=== PATIENT | female | born 1945 | race Caucasian/White ===

== ENCOUNTER → 2017-11-17 11:06 | Outpatient (CLI) | payer MEDICARE, OTHER, SELFPAY ==
[2017-11-17 15:27] LABS: Absolute Lymphocyte Count 2.13 X10^3/ul (0.83-4.51); Absolute Neutrophil Count 4.3 X10^3/uL (2.0-7.7); Basophil# 0.03 X10^3/uL; Basophil% 0.4 % (0-1); Eosinophil# 0.31 X10^3/uL; Eosinophils% 4.3 % (0-5); Hematocrit 41.7 % (37-47); Hemoglobin 13.2 g/dl (12.0-15.0); Lymphocyte # 2.13 X10^3/ul (4.0); Lymphocyte % 29.3 % (19-41); Mean Corp Hgb Conc 31.7 g/gl (32-36); Mean Corpuscular Hgb 31.1 pg (27.0-32.0); Mean Corpuscular Volume 98.1 fL (81-99); Mean Platelet Vol. 9.4 fl (6.2-12.0); Monocyte# 0.51 X10^3/uL; Neutrophil # 4.27 X10^3/uL (2.7-7.7); Neutrophil % 58.9 % (47-70); Platelet Count 265 K/mm3 (150-450); RBC Distribution Width CV 14.3 % (11.6-14.6); RBC Distribution Width SD 50.6 fl (35.1-43.9); Red Blood Count 4.25 M/mm3 (4.2-5.4); White Blood Count 7.3 K/mm3 (4.4-11.0)
[2017-11-17 15:40] LABS: POSITIVE COUNT NO; POSITIVE DIFFERENTIAL NO; POSITIVE MORPHOLOGY NO
[2017-11-17 15:46] LABS: T4 Free Direct 1.07 ng/dL (0.76-1.46); Thyroid Stim Hormone (TSH) 1.95 uIU/mL (0.358-3.74)
== END ==
PROVIDERS: Physician Assistant Medical; Family Provider Family Medicine; PCP Family Medicine; Visit Provider Family Medicine
DX: D64.9 Anemia, unspecified (principal)
CPT/HCPCS: 36415; 84439; 84443; 84480; 85025

== ENCOUNTER → 2017-12-10 12:31 | Outpatient (CLI) | payer MEDICARE, OTHER, SELFPAY ==
--- NOTE | 2017-12-10 12:36 | CDU_ITS ---
Reason For Study: carotid stenosis Rt. Velocities/BP Lt. Velocities/BP Prox CCA 82.7/16.4 cm/sec. Prox CCA 92.6/22.3 cm/sec. Mid CCA 69.2/15.2 cm/sec. Mid CCA 75.0/22.3 cm/sec. Dist CCA 64.5/21.7 cm/sec. Dist CCA 65.7/22.3 cm/sec. Prox ICA 38.7/15.8 cm/sec. Prox ICA 46.3/15.8 cm/sec. Mid ICA 57.5/22.3 cm/sec. Mid ICA 109/39.0 cm/sec. Dist ICA 85.0/25.2 cm/sec. Dist ICA 74.0/24.4 cm/sec. Rt. ICA/CCA = 1.2. Lt. ICA/CCA = 1.5. Prox ECA 61.0/11.7 cm/sec. Prox ECA 67.6/10.5 cm/sec. Rt. Vert. 48.1/15.8 cm/sec. Lt. Vert. 62.5/21.6 cm/sec. Right Extracranial There is intimal thickening but no significant atherosclerotic plaque noted in the right common carotid artery. There is intimal thickening but no significant atherosclerotic plaque noted in the right internal carotid artery. There is intimal thickening but no significant atherosclerotic plaque noted in the right external carotid artery. Antegrade flow is noted in the right vertebral artery. Left Extracranial There is intimal thickening but no significant atherosclerotic plaque noted in the left common carotid artery. There is intimal thickening but no significant atherosclerotic plaque noted in the left internal carotid artery. The left internal carotid artery is very tortuous. There is intimal thickening but no significant atherosclerotic plaque noted in the left external carotid artery. Antegrade flow is noted in the left vertebral artery. Procedure Carotid Duplex 79307. The exam was diagnostic. Exam performed in department. Interpretation Summary No hemodynamically significant plague or stenosis bilateral extracranial internal carotids with <50% stenosis bilaterally. Tortuous left internal carotid Normal flow bilateral external carotids Patent and antegrade vertebrals bilaterally Ordering Physician: Kristin Coker Performed By: Girish Gonzales RVT
== END ==
PROVIDERS: Family Provider Family Medicine; PCP Family Medicine; Visit Provider Family Medicine
DX: I65.23 Occlusion and stenosis of bilateral carotid arteries (principal)
CPT/HCPCS: 93880

== ENCOUNTER → 2017-12-17 10:13 | Outpatient (CLI) | payer MEDICARE, OTHER, SELFPAY ==
--- NOTE | 2017-12-17 10:13 | DT_ITS ---
This patient was seen during an EMR downtime December 14, 2017 - December 21, 2017. This patient may have a combination of paper and electronic documentation or all paper documentation. All documentation is viewable within the e-chart portion of [employer] for each patient visit.
--- NOTE | 2017-12-17 10:14 | BI_ITS ---
MAMMOGRAPHY - BILATERAL SCREENING REASON FOR EXAM: Female, 72 years old. Routine annual screening examination. PERTINENT HISTORY: Non-contributory. TECHNIQUE: Digital bilateral breast lloyd (3D mammographic acquisition) in the CC and MLO projections. 2-D mediolateral oblique (MLO) and craniocaudad (CC) views of both breasts were obtained. CAD: Full Field Digital Mammography with Computer Added Detection was performed. COMPARISON: Comparison is made with prior study dated March 31, 2016 and March 29, 2015. FINDINGS: Breast Composition: There are scattered areas of fibroglandular density. More breast tissue is seen in the upper outer quadrant of the left breast as compared to the right side since prior study. This may be related to hormone replacement therapy. Clinical correlation is recommended. There are no dominant masses or suspicious calcifications. No other significant abnormalities are identified. BI/SCREENING MAMM (CAD), BILAT IMPRESSION: Stable bilateral screening mammogram. Yearly follow-up mammogram recommended. (A) ASSESSMENT CATEGORY: BIRADS Category 2: Benign. A letter regarding these results will be sent to the patient by the facility within 30 days. Approximately 10% of breast cancers are not detected by mammography. A normal mammogram should not delay biopsy of a clinically suspicious abnormality. [id number] Electronically Signed: Ton Tipton MD at 9:04 EDT Tel [phone], Service support ,
== END ==
PROVIDERS: Family Provider Family Medicine; PCP Family Medicine; Visit Provider Family Medicine
DX: Z12.31 Encounter for screening mammogram for malignant neoplasm of breast (principal)
CPT/HCPCS: 77063; 77067

== ENCOUNTER → 2018-05-25 08:19 | Outpatient (CLI) | payer MEDICARE, OTHER, SELFPAY ==
[2018-05-25 09:19] LABS: ALB/GLOB Ratio 0.9 RATIO (0.9-2.4); AST(SGOT) 26 U/L (15-37); Alanine Aminotransfer ALT/SGPT 31 U/L (13-56); Albumin, Serum 3.6 g/dL (3.2-5.0); Alkaline Phosphatase 74 U/L (45-117); Anion Gap 7 (5-15); BUN 17 mg/dL (7-18); BUN/Creat Ratio 19.9 RATIO (10-20); Calcium,Total 8.7 mg/dL (8.5-10.1); Chloride 108 mmol/L (98-107); Cholesterol 216 mg/dL (200); Creatinine, Serum 0.86 mg/dL (0.55-1.02); EST Glomerular Filtration Rate 70 mL/min (>60); Est Glom Filt Rate - Afr Amer 84 mL/min (>60); Glucose 103 mg/dL (74-106); High Density Lipoprotein 76 mg/dL; Potassium 4.2 mmol/L (3.5-5.1); Protein, Total 7.6 g/dL (6.4-8.2); Sodium Level 143 mmol/L (136-145); Triglycerides 217 mg/dL; Very Low Density Lipoprotein 43 mg/dL (5-40)
== END ==
PROVIDERS: Family Provider Family Medicine; PCP Family Medicine; Referring Provider Family Medicine; Visit Provider Family Medicine
DX: E78.5 Hyperlipidemia, unspecified (principal); I10 Essential (primary) hypertension; I65.29 Occlusion and stenosis of unspecified carotid artery
CPT/HCPCS: 36415; 80053; 80061

== ENCOUNTER 2018-08-20 05:55 | Day surgery (SDC) | payer MEDICARE, OTHER, SELFPAY ==
[2018-07-29 11:01] VITALS: BMI 27.9
[2018-08-20] VITALS (12 sets, daily range): BP systolic 90–143; BP diastolic 47–77; PULSE 63–73; RESP 14–18; TEMP 35.9–36.8; O2SAT 92–98; BMI 27.1
--- NOTE | 2018-08-20 07:00 | COLBX_PTH ---
PATIENT: LYLY MURO LOC: EN U#:[id number] AGE/SX: 73/F ROOM: RE08/20/[address]: Dr. Alejandro Salcedo MD : 1945 BED: DIS: 08/20/2018 SPEC #: [id number] RECD: 08/20/18 08:50 STATUS: JOSHUA JOHANNA #: [id number] LUANA: 08/20/18 07:[address]: Alejandro Salcedo DEPT: SURGICAL PATHOLOGY RECD BY: Mahin Chris ENTERED: 08/20/18 12:46 SP TYPE: COLON BX OTHR DR: Dr. Mariana Lugo, DO Tissues: A - SPLENIC FLEXURE B - Sigmoid colon biopsy Procedures: Surgery Specimen Level IV HEADER OPERATION: Colonoscopy - open access (MOD) PRE-OP DIAGNOSIS: Screening TISSUE SUBMITTED: A - Polyp at splenic flexure, B - Distal sigmoid polyp MICROSCOPIC DIAGNOSIS A. Colonic polyp at splenic flexure, biopsy: Fragment of benign colonic mucosa. See comment. B. Distal sigmoid colon polyp, biopsy: Fragment of colonic mucosa with focal hyperplastic change. AM:iglesia 08/23/18 COMMENT A. Neither hyperplastic nor adenomatous changes is seen. Clinical correlation is suggested. MICROSCOPIC DESCRIPTION Slides are reviewed. GROSS DESCRIPTION A - Received in fixative is one container labeled with the patient's name and designated polyp at splenic flexure. The specimen consists of one irregular fragment of light bailey soft tissue that measures 0.5 x 0.3 x 0.1 cm. The specimen is totally submitted in one cassette. B - Received in fixative is one container labeled with the patient's name and designated distal sigmoid polyp. The specimen consists of one irregular fragment of light bailey soft tissue that measures 0.4 x 0.3 x 0.1 cm. The specimen is totally submitted in one cassette. / SJ:iglesia 08/20/18 TC:5 CPT: 29202 x2
--- NOTE | 2018-08-20 07:02 | PCM.HP.STD ---
History of Present Illness Date of Admission: 08/20/18 The patient is a 73 year old F who has a personal history of colon polyps. She had a colonoscopy approximately a year and a half ago.At that point there was some difficulty in completely eradicating the polyps. Fortunately she currently has no symptoms. No bright red blood per rectum or melena. No abdominal pain. She did have atrial fibrillation at that time was on chronic anticoagulation. Currently she has a pacemaker. She otherwise feels well. 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 ~11/28/10) Gen change 11/28/10 Cardiomyopathy (Chronic) PAF (paroxysmal atrial fibrillation) (Chronic) HTN (hypertension) (Chronic) HLD (hyperlipidemia) (Chronic) Overweight (BMI 25.0-29.9) (Chronic) Medical History: Medical History (Last Reviewed 07/29/18 @ 11:20 by Raciel Louie MD) Left bundle branch block (Chronic) I44.7 Cardiomyopathy (Chronic) I42.9 PAF (paroxysmal atrial fibrillation) (Chronic) I48.0 HTN (hypertension) (Chronic) I10 HLD (hyperlipidemia) (Chronic) E78.5 Allergies No Known Allergies Allergy (Verified 08/17/18 14:40) Home Medications: Ambulatory Orders Medication Instructions Recorded Lorazepam [Ativan] 0.5 mg PO DAILY PRN PRN 06/30/13 Sertraline HCl [Zoloft] 25 mg PO QHS 06/30/13 fluticasone 50 mcg/actuation nasal 1 spray INTRANASAL DAILY 07/29/18 spray,suspension Allergy Shot QWEEK 08/17/18 Carvedilol [Coreg (Beta Shantel)] 12.5 mg PO BREAKFAST 08/17/18 Cholecalciferol (Vitamin D3) 5,000 unit PO DAILY 08/17/18 [Vitamin D3] Diltiazem HCl [Cardizem Cd] 120 mg PO QDAY 08/17/18 Ramipril [Altace] 10 mg PO DAILY 08/17/18 Carvedilol [Coreg] 25 mg PO QHS 08/20/18 Surgical History: Surgical History (Last Reviewed 07/29/18 @ 11:20 by Raciel Louie MD) Presence of automatic implantable cardioverter-defibrillator (Chronic) Onset Date: ~11/28/10 Z95.810 Gen change 11/28/10 Hx of cholecystectomy Z90.49 Surgical History: - - Pacemaker/AICD replacement x 3, most recent 04/02/17, cholecystectomy. 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 Review of Systems Constitutional: Denies: Anorexia Cardiovascular: Denies: Chest Pain, Claudication Gastrointestinal: Reports: Diarrhea. Denies: Abdominal Pain Neurological: Denies: Balance problems Endocrine: Denies: Change in Body Habitus VTE Information - Inpt Only VTE Present on Admission: No - Physical Exam General: Alert, Oriented x3, Cooperative, No apparent distress HEENT: Atraumatic Lungs: Clear to auscultation Cardiovascular: Regular rate, Regular Rhythm Abdomen: Bowel Sounds Present, Soft, Non Tender, Non-Distended Psych/Mental Status: Normal Affect Vital Signs Temp Pulse Resp Pulse Ox 97.8 F 73 18 96 08/20/18 06:39 08/20/18 06:39 08/20/18 06:39 08/20/18 06:39 Oxygen Delivery Method Room Air Weight: 168 lb Body Mass Index (BMI) 27.1 Assessment/Plan I plan to proceed with a colonoscopy with possible biopsy or polypectomy as indicated. She has had an opportunity to ask and have questions answered. We will proceed as noted. Alejandro Salcedo M.D., F.A.C.S.
--- NOTE | 2018-08-20 07:33 | OP.ENDO_ITS ---
Patient Name: Tish Robert Procedure Date: 08/20/2018 6:59 AM Date of : 1945 Age: 73 Procedure: Colonoscopy Indications: High risk colon cancer surveillance: Personal history of colonic polyps Providers: Alejandro Salcedo MD Referring MD: Alejandro Salcedo MD Medicines: Midazolam 3.5 mg IV, Meperidine 100 mg IV Patient Profile: Last Colonoscopy: 1 year ago. Complications: No immediate complications. Procedure: Pre-Anesthesia Assessment: - Prior to the procedure, a History and Physical was performed, and patient medications and allergies were reviewed. The patient's tolerance of previous anesthesia was also reviewed. The risks and benefits of the procedure and the sedation options and risks were discussed with the patient. All questions were answered, and informed consent was obtained. Prior Anticoagulants: The patient has taken no previous anticoagulant or antiplatelet agents. ASA Grade Assessment: II - A patient with mild systemic disease. After reviewing the risks and benefits, the patient was deemed in satisfactory condition to undergo the procedure. After I obtained informed consent, the scope was passed under direct vision. Throughout the procedure, the patient's blood pressure, pulse, and oxygen saturations were monitored continuously. The Colonoscope was introduced through the anus and advanced to the cecum, identified by appendiceal orifice and ileocecal valve. The colonoscopy was performed without difficulty. The patient tolerated the procedure well. The quality of the bowel preparation was good. The ileocecal valve and the appendiceal orifice were photographed. Moderate Sedation: Moderate (conscious) sedation was personally administered by the endoscopist. The following parameters were monitored: oxygen saturation, heart rate, blood pressure, and response to care. Total physician intraservice time was 15 minutes. Scope In: 7:09:11 AM Scope Withdrawal Time 0 hours 10 minutes 47 seconds Scope Out: 7:26:50 AM Total Procedure Duration Time 0 hours 17 minutes 39 seconds Findings: The digital rectal exam findings include non-thrombosed external hemorrhoids, non-thrombosed internal hemorrhoids and internal hemorrhoids that prolapse with straining, but require manual replacement into the anal canal (Grade III). A 3 mm polyp was found in the distal sigmoid colon. The polyp was sessile. The polyp was removed with a cold biopsy forceps. Resection and retrieval were complete. A 4 mm polyp was found in the splenic flexure. The polyp was sessile. The polyp was removed with a cold biopsy forceps. Resection and retrieval were complete. Multiple diverticula were found in the sigmoid colon and descending colon. Impression: - Non-thrombosed external hemorrhoids, non-thrombosed internal hemorrhoids and internal hemorrhoids that prolapse with straining, but require manual replacement into the anal canal (Grade III) found on digital rectal exam. - One 3 mm polyp in the distal sigmoid colon, removed with a cold biopsy forceps. Resected and retrieved. - One 4 mm polyp at the splenic flexure, removed with a cold biopsy forceps. Resected and retrieved. - Diverticulosis in the sigmoid colon and in the descending colon. Recommendation: - Discharge patient to home. - Resume previous diet. - Continue present medications. - Repeat colonoscopy in 5 years for surveillance. - Telephone my office for pathology results in 1 week. Procedure Code(s): --- Professional --- 78155, Colonoscopy, flexible; with biopsy, single or multiple 69669, 59, Moderate sedation services provided by the same physician or other qualified health mall plant caretaker performing the diagnostic or therapeutic service that the sedation supports, requiring the presence of an independent trained observer to assist in the monitoring of the patient's level of consciousness and physiological status; initial 15 minutes of intraservice time, patient age 5 years or older Diagnosis Code(s): --- Professional --- Z86.010, Personal history of colonic polyps K64.2, Third degree hemorrhoids K64.4, Residual hemorrhoidal skin tags D12.5, Benign neoplasm of sigmoid colon D12.3, Benign neoplasm of transverse colon (hepatic flexure or splenic flexure) K57.30, Diverticulosis of large intestine without perforation or abscess without bleeding CPT copyright 2017 [employer]. All rights reserved. The codes documented in this report are preliminary and upon ged preparation teacher review may be revised to meet current compliance requirements. Alejandro Salcedo MD 08/20/2018 7:31:46 AM This report has been signed electronically. Number of Addenda: 0 Note Initiated On: 08/20/2018 6:59 AM
== END 2018-08-20 08:28 | disposition home or self-care (01) ==
LOC: EN 05:58 → AC 06:01
PROVIDERS: Family Provider Family Medicine; PCP Family Medicine; Referring Provider Surgery; Visit Provider Surgery
PROC: 0DJD8ZZ Inspection of Lower Intestinal Tract, Via Natural or Artificial Opening Endoscopic (ICD-10-PCS; CPT 45378; principal; 2018-08-20 06:55)
DX: D12.5 Benign neoplasm of sigmoid colon (principal); Z86.010 Personal history of colon polyps; K64.2 Third degree hemorrhoids; K64.4 Residual hemorrhoidal skin tags; D12.3 Benign neoplasm of transverse colon; K57.30 Diverticulosis of large intestine without perforation or abscess without bleeding; Z95.0 Presence of cardiac pacemaker; I44.7 Left bundle-branch block, unspecified; I48.0 Paroxysmal atrial fibrillation; I42.8 Other cardiomyopathies; I10 Essential (primary) hypertension; E78.5 Hyperlipidemia, unspecified; E66.3 Overweight; Z68.27 Body mass index [BMI] 27.0-27.9, adult
CPT/HCPCS: 45380; 88305; 99152; 99153; J7120

== ENCOUNTER → 2018-10-01 09:59 | Outpatient (CLI) | payer MEDICARE, OTHER, SELFPAY ==
[2018-08-20 06:39] VITALS: BMI 27.1
[2018-10-01 12:51] LABS: Color, Urine Yellow (Yellow); Glucose, Dipstick Normal (Normal); Ketone-Dipstick Negative (Negative); Leukocyte Esterase-Dipstick 25 /ul (Negative); Nitrite-Dipstick Positive (Negative); Occult Blood-Urine 25 /ul (Negative); Protein-Dipstick Negative (Negative); Urine Bilirubin Dipstick Negative (Negative); Urine Clarity Clear (Clear); Urine Urobilinogen Normal (Normal)
== END ==
PROVIDERS: Family Provider Family Medicine; PCP Family Medicine; Visit Provider Family Medicine
DX: N39.0 Urinary tract infection, site not specified (principal)
CPT/HCPCS: 81002; 87086

== ENCOUNTER → 2018-12-10 08:41 | Outpatient (CLI) | payer MEDICARE, OTHER, SELFPAY ==
[2018-08-20 06:39] VITALS: BMI 27.1
[2018-12-10 09:57] LABS: Absolute Lymphocyte Count 2.15 X10^3/ul (0.83-4.51); Absolute Neutrophil Count 4.2 X10^3/uL (2.0-7.7); Basophil# 0.05 X10^3/uL; Basophil% 0.7 % (0-1); Eosinophil# 0.44 X10^3/uL; Hematocrit 42.3 % (37-47); Hemoglobin 13.3 g/dl (12.0-15.0); Lymphocyte # 2.15 X10^3/ul (4.0); Lymphocyte % 29.3 % (19-41); Mean Corp Hgb Conc 31.4 g/gl (32-36); Mean Corpuscular Hgb 29.4 pg (27.0-32.0); Mean Corpuscular Volume 93.6 fL (81-99); Mean Platelet Vol. 9.5 fl (6.2-12.0); Monocyte# 0.52 X10^3/uL; Monocyte% 7.1 % (0-10); Neutrophil # 4.16 X10^3/uL (2.7-7.7); Neutrophil % 56.8 % (47-70); Platelet Count 247 K/mm3 (150-450); RBC Distribution Width CV 13.9 % (11.6-14.6); Red Blood Count 4.52 M/mm3 (4.2-5.4); White Blood Count 7.3 K/mm3 (4.4-11.0)
[2018-12-10 09:58] LABS: POSITIVE COUNT NO; POSITIVE DIFFERENTIAL NO; POSITIVE MORPHOLOGY NO
[2018-12-10 10:24] LABS: ALB/GLOB Ratio 0.9 RATIO (0.9-2.4); AST(SGOT) 18 U/L (15-37); Alanine Aminotransfer ALT/SGPT 22 U/L (13-56); Albumin, Serum 3.4 g/dL (3.2-5.0); Alkaline Phosphatase 72 U/L (45-117); Anion Gap 5 (5-15); BUN 22 mg/dL (7-18); BUN/Creat Ratio 26.6 RATIO (10-20); Calcium,Total 8.8 mg/dL (8.5-10.1); Chloride 111 mmol/L (98-107); Cholesterol 244 mg/dL (200); Creatinine, Serum 0.83 mg/dL (0.55-1.02); EST Glomerular Filtration Rate 72 mL/min (>60); Est Glom Filt Rate - Afr Amer 87 mL/min (>60); Globulin 3.9 g/dL (2.2-4.2); Glucose 96 mg/dL (74-106); High Density Lipoprotein 75 mg/dL; Potassium 4.3 mmol/L (3.5-5.1); Protein, Total 7.3 g/dL (6.4-8.2); Sodium Level 145 mmol/L (136-145); Thyroid Stim Hormone (TSH) 2.01 uIU/mL (0.358-3.74); Triglycerides 177 mg/dL; Very Low Density Lipoprotein 35 mg/dL (5-40)
[2018-12-10 11:01] LABS: Vitamin D,25 Hydroxy 60.4 ng/mL (29.95-100.01)
== END ==
PROVIDERS: Family Provider Family Medicine; PCP Family Medicine; Referring Provider Family Medicine; Visit Provider Family Medicine
DX: I10 Essential (primary) hypertension (principal); R41.3 Other amnesia; E78.5 Hyperlipidemia, unspecified; E55.9 Vitamin D deficiency, unspecified
CPT/HCPCS: 36415; 80053; 80061; 82306; 84443; 85025

== ENCOUNTER → 2018-12-14 11:10 | Outpatient (CLI) | payer MEDICARE, OTHER, SELFPAY ==
[2018-08-20 06:39] VITALS: BMI 27.1
[2018-12-21 14:07] LABS: Uric Acid 100 % (.)
== END ==
PROVIDERS: PCP Family Medicine; Visit Provider Nurse Practitioner Adult Health
DX: N20.0 Calculus of kidney (principal)
CPT/HCPCS: 82360

== ENCOUNTER → 2018-12-14 16:40 | Outpatient (CLI) | payer MEDICARE, OTHER, SELFPAY ==
[2018-08-20 06:39] VITALS: BMI 27.1
== END ==
PROVIDERS: Family Provider Family Medicine; PCP Family Medicine; Referring Provider Nurse Practitioner Adult Health; Visit Provider Nurse Practitioner Adult Health
DX: N20.0 Calculus of kidney (principal)

== ENCOUNTER → 2018-12-28 | Outpatient (CLI) | payer MEDICARE, OTHER, SELFPAY ==
[2018-08-20 06:39] VITALS: BMI 27.1
--- NOTE | 2018-12-28 12:14 | BI_ITS ---
MAMMOGRAPHY - BILATERAL SCREENING REASON FOR EXAM: Female, 73 years old. Routine annual screening examination. PERTINENT HISTORY: Daughter with breast cancer. Sister with breast cancer. TECHNIQUE: Digital bilateral breast lakhwinder (3D mammographic acquisition) in the CC and MLO projections. 2-D mediolateral oblique (MLO) and craniocaudad (CC) views of both breasts were obtained. CAD: Full Field Digital Mammography with Computer Added Detection was performed. COMPARISON: Comparison is made with prior study dated December 17, 2017. FINDINGS: Breast Composition: There are scattered areas of fibroglandular density. There are no dominant masses or suspicious calcifications. No other significant abnormalities are identified. There has been no significant change since the prior study. BI/SCREEN MAMM (CAD) W/LAKHWINDER BILAT IMPRESSION: Stable bilateral screening mammogram. Yearly follow-up mammogram recommended. (A) ASSESSMENT CATEGORY: BIRADS Category 1: Negative. A letter regarding these results will be sent to the patient by the facility within 30 days. Approximately 10% of breast cancers are not detected by mammography. A normal mammogram should not delay biopsy of a clinically suspicious abnormality. [id number] Electronically Signed: Ton Tipton, at 13:26 EDT , Service support ,
== END | disposition home or self-care (01) ==
LOC: OPBI 12:13
PROVIDERS: PCP Family Medicine; Referring Provider Family Medicine; Visit Provider Family Medicine
DX: Z12.31 Encounter for screening mammogram for malignant neoplasm of breast (principal)
CPT/HCPCS: 77063; 77067

== ENCOUNTER 2019-02-10 18:59 | Emergency (ER) | payer MEDICARE, OTHER, SELFPAY ==
[2019-02-01 12:47] VITALS: BMI 28.2
[2019-02-10 19:00] VITALS: BP 162/99; PULSE 69; RESP 20; TEMP 36.7; O2SAT 96; BMI 28.5
--- NOTE | 2019-02-10 19:14 | EKG12_ITS ---
Test Reason : PALPS Blood Pressure : / mmHG Vent. Rate : 070 BPM Atrial Rate : 070 BPM P-R Int : 166 ms QRS Dur : 148 ms QT Int : 426 ms P-R-T Axes : 036 241 068 degrees QTc Int : 460 ms Atrial-sensed ventricular-paced rhythm Biventricular pacemaker detected Abnormal ECG Confirmed by DEANDRE LEZAMA, ANGELA ([id number]), video editor GABY JAUREGUI ([id number]) on 02/14/2019 1:21:37 PM Referred By: JUAN BANSAL Confirmed By:ANGELA CARRERA MD
--- NOTE | 2019-02-10 19:21 | ED.DCSUM_ITS ---
History of Present Illness Chief Complaint: Palpitations Detail of Chief Complaint: Possible problem with pacemaker not palpitations Informant: Patient, Family, Significant Other Onset: Today Context: Sudden Onset Timing: Continuous Quality: External sensing device blinking yellow Location: Home Current Severity: - - Patient has no symptoms Maximum Severity: - - Patient has no symptoms Worsened by: Nothing Relieved by: Nothing Associated Symptoms: None Narrative: Patient is an elderly woman who presents because her external sensing devices blinking yellow, which indicates there is a problem with her pacemaker. P acemaker was placed 2 years ago. She denies any symptoms. Prior similar symptoms: No Recent Illness/Hospitalization: No - Past Medical History (1) Essential (primary) hypertension Status: Chronic (2) HLD (hyperlipidemia) Status: Chronic (3) Left bundle branch block Status: Chronic (4) Paroxysmal atrial fibrillation Status: Chronic (5) Presence of biventricular implantable cardioverter-defibrillator (ICD) Status: Chronic Comment: Gen changed 04/02/17 Past Medical History - Allergies and Home Meds Allergies/Adverse Reactions: Allergies No Known Allergies Allergy (Verified 02/10/19 19:00) Primary Care Physician: Mariana Lugo DO [Primary Care Provider] - Prior records reviewed: Yes Surgical History: - - Pacemaker/AICD replacement x 3, most recent 04/02/17, cholecystectomy. Lives: Spouse/ Significant Other Smoking Status: Never smoker Alcohol: None Drugs: None - Family History Maternal Family History: Reports: No pertinent history Paternal Family History: Reports: Cancer - Father w/ history of lung CA, tobacco user. Review of Systems General: Denies: Chills, Fever, Sweats Eyes: Denies: Visual changes - bilaterally, Blurred Vision - bilaterally, Diplopia ENT: Denies: Rhinorrhea, Sore throat Cardiovascular: Denies: Chest pain, Palpitations Respiratory: Denies: Dyspnea, Cough, Dyspnea on exertion Gastrointestinal: Denies: Abdominal pain, Nausea, Vomiting, Diarrhea, Melena, Hematochezia Genitourinary: Denies: Dysuria, Hematuria, Frequency Musculoskeletal: Denies: Back pain, Extremity Pain Skin: Denies: Rash, Abscess, Abrasions, Wounds Neurological: Denies: Headache, Weakness, Numbness Hematologic: Denies: Easy bruising, Easy bleeding Allergy: Denies: Uticaria, Swelling of the mouth, Swelling of the tongue Physical Exam Vital Signs/Narrative: Vital Signs Temp Pulse Resp BP Pulse Ox 02/10/19 19:00 98.1 F 69 20 H 162/99 H 96 General: Well nourished, Well developed, No Acute Distress Head: Normocephalic, Atraumatic Eyes: Perrl, EOMI ENT: Moist mucous membranes, No rhinorrhea Neck: Supple, Nontender Cardiovascular: Regular rate, Regular rhythm, No murmurs. Negative for: Normal S1, Normal S2 Respiratory: No distress, CTA bilaterally, Chest nontender Abdomen: Soft, Nontender, Nondistended, Normal bowel sounds Back: Nontender, Normal Inspection Extremities: Nontender, No edema Skin: Normal color, No rash Neurological: Alert, Oriented x3, Cranial nerves II-XII grossly intact, Normal Strength, Normal Sensation Psychological: Normal affect, Normal Mood Diagnostic/Tx/Re-eval - EKG Initial EKG Interpretation: - - Ventricular rate is 70. ND interval is 106 6 ms. QRS durations 148 ms. Patient has an atrial sensed ventricular paced rhythm. - Medical Decision Making Since patient has no symptoms will have the pacemaker interrogated and will discuss case with Dr. Raciel Louie. Patient's device was interrogated. There were no ventricular episode encounters. There is no treatment. No sustained ventricular episodes. Device did pace. Also 503 PACs since February 01. There were 4 premature ventricular beats noted since February 01. Dr. Rea is made aware of results of interrogation. Patient to be discharged home ED Disposition - Plan for ED Patient: Disposition: Home or Assisted Living Diagnosis: Encounter for interrogation of cardiac defibrillator, Encounter for interrogation of cardiac pacemaker Referrals: Mariana Lugo DO [Primary Care Provider] - As Needed Additional Instructions: Interrogation of your device indicated no problem with the device or any abnormalities. Will need to have your sensor evaluated.
--- NOTE | 2019-02-10 19:33 | ED.RN ---
PACE MAKER INTERROGATED,COMPANY WILL FAX RESULTS.
[2019-02-10 20:30] VITALS: BP 157/88; PULSE 66; RESP 15; O2SAT 98
== END 2019-02-10 20:31 | disposition home or self-care (01) ==
PROVIDERS: Emergency Provider Emergency Medicine; Family Provider Family Medicine; PCP Family Medicine
DX: Z95.810 Presence of automatic (implantable) cardiac defibrillator (principal); I10 Essential (primary) hypertension; E78.5 Hyperlipidemia, unspecified; I48.0 Paroxysmal atrial fibrillation; I44.7 Left bundle-branch block, unspecified
CPT/HCPCS: 93005; 99282; A4216

== ENCOUNTER → 2019-12-01 11:06 | Outpatient (CLI) | payer MEDICARE, OTHER, SELFPAY ==
[2019-08-23 14:34] VITALS: BMI 28.4
[2019-12-01 13:21] LABS: Cholesterol 249 mg/dL (200); High Density Lipoprotein 82 mg/dL; Triglycerides 228 mg/dL; Very Low Density Lipoprotein 46 mg/dL (5-40)
== END ==
PROVIDERS: PCP Family Medicine; Visit Provider Family Medicine
DX: E78.5 Hyperlipidemia, unspecified (principal)
CPT/HCPCS: 36415; 80061

== ENCOUNTER → 2020-01-03 | Outpatient (CLI) | payer MEDICARE, OTHER, SELFPAY ==
[2019-08-23 14:34] VITALS: BMI 28.4
== END | disposition home or self-care (01) ==
LOC: LABSPEC 12:19
PROVIDERS: PCP Family Medicine; Visit Provider Family Medicine
DX: Z20.828 Contact with and (suspected) exposure to other viral communicable diseases (principal)
CPT/HCPCS: 87635; U0003

== ENCOUNTER → 2020-01-31 | Outpatient (CLI) | payer MEDICARE, OTHER, SELFPAY ==
[2019-08-23 14:34] VITALS: BMI 28.4
--- NOTE | 2020-01-31 11:00 | CDU_ITS ---
Reason For Study: carotid stenosis Rt. Velocities/BP Lt. Velocities/BP Prox CCA 55.2/12.1 cm/sec. Prox CCA 63.0/21.2 cm/sec. Mid CCA 57.8/14.7 cm/sec. Mid CCA 68.2/22.6 cm/sec. Dist CCA 48.6/16.0 cm/sec. Dist CCA 60.4/18.6 cm/sec. Prox ICA 38.2/14.7 cm/sec. Prox ICA 51.2/19.9 cm/sec. Mid ICA 53.9/20.0 cm/sec. Mid ICA 60.4/23.9 cm/sec. Dist ICA 83.8/35.6 cm/sec. Dist ICA 87.9/38.0 cm/sec. Rt. ICA/CCA = 1.5. Lt. ICA/CCA = 1.3. Prox ECA 56.5/10.8 cm/sec. Prox ECA 48.6/10.8 cm/sec. Rt. Vert. 40.8/14.7 cm/sec. Lt. Vert. 48.6/18.6 cm/sec. Right Extracranial There is intimal thickening but no significant atherosclerotic plaque noted in the right common carotid artery. There is intimal thickening but no significant atherosclerotic plaque noted in the right internal carotid artery. There is intimal thickening but no significant atherosclerotic plaque noted in the right external carotid artery. Antegrade flow is noted in the right vertebral artery. Left Extracranial There is intimal thickening but no significant atherosclerotic plaque noted in the left common carotid artery. There is intimal thickening but no significant atherosclerotic plaque noted in the left internal carotid artery. The left internal carotid artery is very tortuous. There is intimal thickening but no significant atherosclerotic plaque noted in the left external carotid artery. Antegrade flow is noted in the left vertebral artery. Procedure Carotid Duplex [id number]. The exam was diagnostic. Exam performed in department. Interpretation Summary No significant atherosclerotic plaque or stenosis noted in the internal carotid arteries bilaterally. Flow within the vertebral arteries is antegrade bilaterally. Ordering Physician: Mariana Lugo Performed By: Girish Gonzales RVT
--- NOTE | 2020-01-31 11:23 | BI_ITS ---
MAMMOGRAPHY - BILATERAL SCREENING 3-D TOMOSYNTHESIS REASON FOR EXAM: Female, 74 years old. Routine screening PERTINENT HISTORY: FAM HX MAT NIECE AGE 52 -- LT PACEMAKER 2005, REPLACED IN 2017 -- BILAT MOLES MARKED. TECHNIQUE: 2-D mammograms and 3-D Tomosynthesis of the breast (s) were performed. CAD was performed. COMPARISON: 12/28/2018 FINDINGS: The breast composition is composed of scattered fibroglandular density. Scattered benign calcifications are seen. No dense spiculated masses or suspicious microcalcifications are identified. No architectural distortion is identified. There is no skin thickening or retraction. There has been no significant change since the prior study. BI/SCREEN MAMM (CAD) W/LAKHWINDER BILAT IMPRESSION: No mammographic signs of malignancy. Routine yearly mammograms recommended. ASSESSMENT CATEGORY: BIRADS Category 2: Benign. A letter regarding these results will be sent to the patient by the facility within 30 days. FOLLOW UP RECOMMENDATION: Yearly follow up mammogram recommended. (A) Approximately 10% of breast cancers are not detected by mammography. A normal mammogram should not delay biopsy of a clinically suspicious abnormality. Electronically Signed: Vlad Peralta MD at 13:53 EDT , Service support ,
--- NOTE | 2020-01-31 11:44 | BD_ITS ---
STUDY: DUAL ENERGY X-RAY ABSORPTIOMETRY / DXA REASON FOR EXAM: Female, 74 years old. 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 COMPARISON: Comparison is made with prior study dated 03-12-11. FINDINGS: Lumbar Spine (L1-L4): g/cm2 (1.001) / T-score (-1.4) / Z-score (0.3) Findings are suggestive of osteopenia with a low fracture risk. Left Femur Total: g/cm2 (0.815) / T-score (-1.5) / Z-score (0.1) Left Femoral Neck: g/cm2 (0.734) / T-score (-2.2) / Z-score (-0.4) Right Femur Total: g/cm2 (0.886) / T-score (-1.0) / Z-score (0.6) Right Femoral Neck: g/cm2 (0.805) / T-score (-1.7) / Z-score (0.1) The T-Scores on the most recent prior examination were: Lumbar Spine (L1-L4): There has been worsening of bone density since the previous examination. Left Femur Total: which represents a worsening of 2.5%. Right Femur Total: which represents a worsening of 3.6%. BD/Dexa Bone Density Study IMPRESSION: The patient is considered osteopenic as outlined below according to World Alex Organization (WHO) criteria with a moderate fracture risk. There has been worsening of bone density since the previous examination. Reference Information: The T-score is the number of standard deviations above or below the standard which is normal for young adults at their peak bone mineral density. The World Health Organization (WHO) interprets the T-scores as follows: Above -1 Normal bone density Between -1 and -2.5 Osteopenia Equal to / or below -2.5 Osteoporosis As a practical clinical guideline, osteopenia may be graded as follows: Mild -1 through -1.5 Moderate -1.6 through -2.0 Severe -2.1 through -2.4 The Z-score is the number of standard deviations above or below age-matched controls. A Z-score of less than -1.5 would be considered abnormal. References: 1. NIH Osteoporosis and Related Bone Diseases http://www.osteo.org 2. International Society for Clinical Densitometry http://www.iscd.org 3. National Osteoporosis Foundation http://www.nof.org Electronically Signed: Ton Tipton, at 10:55 EDT , Service support ,
== END | disposition home or self-care (01) ==
LOC: CVS 10:58
PROVIDERS: PCP Family Medicine; Referring Provider Family Medicine; Visit Provider Family Medicine
DX: I65.23 Occlusion and stenosis of bilateral carotid arteries (principal); I77.9 Disorder of arteries and arterioles, unspecified; Z12.31 Encounter for screening mammogram for malignant neoplasm of breast; M81.0 Age-related osteoporosis without current pathological fracture
CPT/HCPCS: 77063; 77067; 77080; 93880

== ENCOUNTER → 2020-04-05 | Outpatient (CLI) | payer MEDICARE, OTHER, SELFPAY ==
[2019-05-17 14:51] VITALS: BMI 28.5
[2019-08-23 14:34] VITALS: BMI 28.4
[2020-04-05 15:25] LABS: Absolute Lymphocyte Count 2.38 X10^3/uL (0.83-4.51); Absolute Neutrophil Count 4.7 X10^3/uL (2.0-7.7); Basophil# 0.06 X10^3/uL; Basophil% 0.7 % (0-1); Hematocrit 42.6 % (37-47); Hemoglobin 13.1 g/dL (12.0-15.0); Lymphocyte # 2.38 X10^3/ul (4.0); Lymphocyte % 29.6 % (19-41); Mean Corp Hgb Conc 30.8 g/dL (32-36); Mean Corpuscular Hgb 29.6 pg (27.0-32.0); Mean Corpuscular Volume 96.4 fL (81-99); Mean Platelet Vol. 9.6 fl (6.2-12.0); Monocyte# 0.51 X10^3/uL; Monocyte% 6.4 % (0-10); NRBC Flagged by Analyzer 0 % (0-5); Neutrophil # 4.65 X10^3/uL (2.7-7.7); Neutrophil % 57.9 % (47-70); Platelet Count 280 K/mm3 (150-450); RBC Distribution Width CV 13.8 % (11.6-14.6); RBC Distribution Width SD 49.2 fl (35.1-43.9); Red Blood Count 4.42 M/mm3 (4.2-5.4)
[2020-04-05 15:55] LABS: ALB/GLOB Ratio 0.9 RATIO (0.9-2.4); AST(SGOT) 21 U/L (15-37); Alanine Aminotransfer ALT/SGPT 24 U/L (13-56); Albumin, Serum 3.6 g/dL (3.2-5.0); Alkaline Phosphatase 75 U/L (45-117); Anion Gap 7 (5-15); BUN 17 mg/dL (7-18); BUN/Creat Ratio 20.2 RATIO (10-20); Calcium,Total 9.2 mg/dL (8.5-10.1); Chloride 106 mmol/L (98-107); Creatinine, Serum 0.84 mg/dL (0.55-1.02); EST Glomerular Filtration Rate 71 mL/min (>60); Est Glom Filt Rate - Afr Amer 85 mL/min (>60); Free T3 2.6 pg/mL (2.18-3.98); Globulin 3.9 g/dL (2.2-4.2); Glucose 91 mg/dL (74-106); Potassium 4.1 mmol/L (3.5-5.1); Protein, Total 7.5 g/dL (6.4-8.2); Sodium Level 140 mmol/L (136-145); Thyroid Stim Hormone (TSH) 2.48 uIU/mL (0.358-3.74)
== END | disposition home or self-care (01) ==
LOC: BFHLAB 11:28
PROVIDERS: Family Provider Family Medicine; PCP Family Medicine; Visit Provider Family Medicine
DX: E78.5 Hyperlipidemia, unspecified (principal); I10 Essential (primary) hypertension; E03.9 Hypothyroidism, unspecified; Z51.81 Encounter for therapeutic drug level monitoring
CPT/HCPCS: 36415; 80053; 84443; 84481; 85025

== ENCOUNTER → 2020-05-10 | Outpatient (CLI) | payer MEDICARE, OTHER, SELFPAY ==
[2020-04-05 14:48] VITALS: BMI 30.4
--- NOTE | 2020-05-10 12:36 | ECHOD_ITS ---
Reason For Study: DYSPNEA/SOB Procedure This was a 2D Doppler, Color Flow transthoracic echocardiogram. Exam performed in department. Left Ventricle Normal LV size. Mild concentric left ventricular hypertrophy. The estimated ejection fraction is 56 %. Left ventricular systolic function is normal. Stage 1 diastolic dysfunction. No regional wall motion abnormalities noted. Right Ventricle Normal RV size. ICD or pacer leads identified within the right ventricle. Normal systolic function. Atria The left atrium is moderately enlarged. Normal right atrium. Mitral Valve Normal mitral valve. Tricuspid Valve Normal tricuspid valve. Mild (1+) tricuspid valve insufficiency. Pulmonary artery systolic pressure is 30 mmHg. Aortic Valve Trisinus/trileaflet aortic valve. Mild (1+) aortic valve insufficiency. Pulmonic Valve Normal pulmonic valve. Mild (1+) pulmonic valve insufficiency. Great Vessels Normal aortic root. The pulmonary artery is normal size. Normal inferior vena cava. Pericardium/Pleural No pericardial effusion. MMode/2D Measurements & Calculations LVIDd: 4.5 cm IVSd: 1.2 cm LVOT diam: 2.0 cm LVIDs: 2.9 cm LVPWd: 1.2 cm LVOT area: 3.2 cm2 RVDd: 3.3 cm FS: 35.2 % Ao root diam: 3.7 cm LAV(MOD-bp): 89.8 ml LA A4 area: 27.7 cm2 LAV(MOD-bp) Indexed: 50.5 ml/m2 LAV(MOD-sp2): 74.3 ml LAV(MOD-sp4): 102.0 ml LA dimension(2D): 3.9 cm RA A4 area: 17.7 cm2 Time Measurements MV dec time: 0.17 sec Doppler Measurements & Calculations MV E max santiago: 65.2 cm/sec Lat Peak E' Santiago: 9.7 cm/sec Med Peak E' Santiago: 6.0 cm/sec MV A max santiago: 80.5 cm/sec E/E' lat: 6.7 E/E' med: 10.9 MV E/A: 0.81 Ao V2 max: 140.3 cm/sec LV V1 max: 103.5 cm/sec SV(LVOT): 69.8 ml Ao max P.9 mmHg LV V1 max P.3 mmHg Ao V2 mean: 104.2 cm/sec LV V1 mean P.4 mmHg Ao mean P.7 mmHg LV V1 mean: 73.7 cm/sec Ao V2 VTI: 29.6 cm LV V1 VTI: 22.2 cm INGRID(I,D): 2.4 cm2 INGRID(V,D): 2.3 cm2 PA V2 max: 93.5 cm/sec TR max santiago: 274.0 cm/sec TR max P.4 mmHg Interpretation Summary Normal LV size. The estimated ejection fraction is 56 %. Left ventricular systolic function is normal. Mild concentric left ventricular hypertrophy. Stage 1 diastolic dysfunction. Ordering Physician: Raicel Louie Referring Physician: Mariana Lugo Performed By: Kusum Dwyer, MANJU, RVT
== END | disposition home or self-care (01) ==
LOC: CVS 12:36
PROVIDERS: PCP Family Medicine; Referring Provider Internal Medicine Cardiovascular Disease; Visit Provider Internal Medicine Cardiovascular Disease
DX: I42.8 Other cardiomyopathies (principal); R06.00 Dyspnea, unspecified; R06.02 Shortness of breath
CPT/HCPCS: 93306

== ENCOUNTER 2021-07-17 12:03 | Outpatient (CLI) | payer MEDICARE, OTHER, SELFPAY ==
--- NOTE | 2021-07-17 12:22 | RAD_ITS ---
STUDY: X-RAY - PELVIS AND RIGHT HIP REASON FOR EXAM: Female, 76 years old. Hip pain. TECHNIQUE: 3 views of the pelvis and hip. COMPARISON: None. FINDINGS: There is a non-specific bowel gas pattern. Normal visualized soft tissue structures. Osteopenia. Mild arthrosis of the sacroiliac joints. Normal bilateral superior and inferior pubic rami. Mild arthrosis of the symphysis pubis. Normal bilateral ischial tuberosities. Mild medial arthrosis of both hips. RAD/HIP, UNI W/ Pelvis 2-3 Views IMPRESSION: Osteopenia with osteoarthritic changes as described. No acute abnormality, evidence of erosive changes or fusion. Electronically Signed: Bryan Olguin MD at 13:42 EST , Service support ,
== END 2021-07-17 23:59 | disposition short-term general hospital (02) ==
PROVIDERS: PCP Family Medicine; Referring Provider Family Medicine; Visit Provider Family Medicine
DX: M16.11 Unilateral primary osteoarthritis, right hip (principal); M79.604 Pain in right leg
CPT/HCPCS: 73502

== ENCOUNTER 2021-07-27 15:23 | Outpatient (CLI) | payer MEDICARE, OTHER, SELFPAY ==
[2021-07-28 15:25] LABS: Mucous, Urine 0 SEEN /hpf (<or=2+); Red Blood Cells-Urine 0 SEEN /hpf (0-5)
[2021-07-28 15:28] LABS: Color, Urine Yellow (Yellow); Glucose, Dipstick Normal (Normal); Ketone-Dipstick Negative (Negative); Leukocyte Esterase-Dipstick 500 /ul (Negative); Nitrite-Dipstick Positive (Negative); Occult Blood-Urine 250 /ul (Negative); Protein-Dipstick 30 mg/dl (Negative); Urine Clarity Cloudy (Clear); Urine Urobilinogen 8 mg/dl (Normal)
[2021-07-28 15:29] LABS: Urine Bilirubin Dipstick 3 mg/dL (Negative)
[2021-07-28 15:49] LABS: Bacteria 2+ /hpf (None Seen); Squamous Epithelial Cells - UA 0-5 SEEN /hpf (5-10); White Blood Cells 10-25 SEEN /hpf (0-5)
== END 2021-07-27 23:59 | disposition short-term general hospital (02) ==
PROVIDERS: PCP Family Medicine; Visit Provider Physician Assistant
DX: N39.0 Urinary tract infection, site not specified (principal); R30.0 Dysuria
CPT/HCPCS: 81001; 87077; 87086; 87088; 87186

== ENCOUNTER 2021-08-26 12:39 | Outpatient (CLI) | payer MEDICARE, OTHER, SELFPAY ==
--- NOTE | 2021-08-26 12:57 | BI_ITS ---
MAMMOGRAPHY - BILATERAL SCREENING REASON FOR EXAM: Female, 76 years old. Routine annual screening examination. PERTINENT HISTORY: Non-contributory. TECHNIQUE: Digital bilateral breast lakhwinder (3D mammographic acquisition) in the CC and MLO projections. 2-D mediolateral oblique (MLO) and craniocaudad (CC) views of both breasts were obtained. CAD: Full Field Digital Mammography with Computer Added Detection was performed. COMPARISON: Comparison is made with prior study dated 01/31/2020 and 12/28/2018. FINDINGS: Breast Composition: There are scattered areas of fibroglandular density. There are no dominant masses or suspicious calcifications. Stable benign-appearing right axillary lymph nodes. A pacemaker battery pack is seen in the left axillary region. No other significant abnormalities are identified. There has been no significant change since the prior study. BI/SCRN MAMM (CAD)W/LAKHWINDER BILAT IMPRESSION: Stable bilateral screening mammogram. Yearly follow-up mammogram recommended. (A) ASSESSMENT CATEGORY: BIRADS Category 2: Benign. A letter regarding these results will be sent to the patient by the facility within 30 days. Approximately 10% of breast cancers are not detected by mammography. A normal mammogram should not delay biopsy of a clinically suspicious abnormality. [id number] Electronically Signed: Ton Tipton MD at 14:16 EST ,
== END 2021-08-26 23:59 | disposition home or self-care (01) ==
LOC: OPBI 12:56
PROVIDERS: PCP Family Medicine; Referring Provider Family Medicine; Visit Provider Family Medicine
DX: Z12.31 Encounter for screening mammogram for malignant neoplasm of breast (principal)
CPT/HCPCS: 77063; 77067

== ENCOUNTER → 2022-01-21 | Outpatient (CLI) | payer MEDICARE, OTHER, SELFPAY ==
[2022-01-21 10:27] LABS: Absolute Neutrophil Count 4.8 X10^3/uL (2.0-7.7); Basophil# 0.05 X10^3/uL; Basophil% 0.6 % (0-1); Hematocrit 42.4 % (37-47); Hemoglobin 13.3 g/dL (12.0-15.0); Lymphocyte % 28.5 % (19-41); Mean Corp Hgb Conc 31.4 g/dL (32-36); Mean Corpuscular Hgb 29.7 pg (27.0-32.0); Mean Corpuscular Volume 94.6 fL (81-99); Mean Platelet Vol. 9.8 fl (6.2-12.0); Monocyte# 0.49 X10^3/uL; Monocyte% 6.1 % (0-10); NRBC Flagged by Analyzer 0 % (0-5); Neutrophil # 4.81 X10^3/uL (2.7-7.7); Neutrophil % 59.6 % (47-70); Platelet Count 283 K/mm3 (150-450); RBC Distribution Width CV 14.1 % (11.6-14.6); Red Blood Count 4.48 M/mm3 (4.2-5.4); White Blood Count 8.1 K/mm3 (4.4-11.0)
[2022-01-21 11:12] LABS: ALB/GLOB Ratio 0.9 RATIO (0.9-2.4); AST(SGOT) 23 U/L (15-37); Alanine Aminotransfer ALT/SGPT 24 U/L (13-56); Albumin, Serum 3.6 g/dL (3.2-5.0); Alkaline Phosphatase 74 U/L (45-117); Anion Gap 6 (5-15); BUN 17 mg/dL (7-18); Calcium,Total 9.2 mg/dL (8.5-10.1); Chloride 109 mmol/L (98-107); Cholesterol 246 mg/dL (200); EST Glomerular Filtration Rate 65 mL/min (>60); Est Glom Filt Rate - Afr Amer 79 mL/min (>60); Globulin 3.8 g/dL (2.2-4.2); Glucose 105 mg/dL (74-106); High Density Lipoprotein 80 mg/dL; Potassium 4.5 mmol/L (3.5-5.1); Protein, Total 7.4 g/dL (6.4-8.2); Sodium Level 142 mmol/L (136-145); Triglycerides 217 mg/dL; Very Low Density Lipoprotein 43 mg/dL (5-40)
== END | disposition home or self-care (01) ==
LOC: MTLAB 08:23
PROVIDERS: PCP Family Medicine; Referring Provider Family Medicine; Visit Provider Family Medicine
DX: E78.5 Hyperlipidemia, unspecified (principal); Z51.81 Encounter for therapeutic drug level monitoring
CPT/HCPCS: 36415; 80053; 80061; 85025

== ENCOUNTER 2022-03-26 11:33 | Emergency (ER) | payer MEDICARE, OTHER, SELFPAY ==
[2022-03-26 11:35] VITALS: BP 160/111; PULSE 72; RESP 16; TEMP 37.2; BMI 29.8
--- NOTE | 2022-03-26 12:19 | EX.ED.DYSGE1 ---
HPI History of Present Illness Chief Complaint: Nosebleed Narrative Narrative: Patient presents with her because of epistaxis that began 2 hours ago. She states she was brushing her teeth and her nose started bleeding. She denies any other bleeding diathesis. She does not take blood thinners except for baby aspirin secondary to coronary artery disease. She was unsure of which side it may have been coming out of. She states that she pinched her nose and the bleeding did not stop. She kept swallowing blood. Upon arrival to the emergency department nasal clamp was placed and she states that she has not been swallowing any blood for at least 20 minutes. She denies any lightheadedness or dizziness. No shortness of breath or chest pain. No other symptoms. She has not had problems with epistaxis in the past. [facility] Medical History Dysuria Essential (primary) hypertension HLD (hyperlipidemia) Left bundle branch block Nonischemic cardiomyopathy Obesity Paroxysmal atrial fibrillation Home Medications lorazepam 0.5 mg tablet 0.5 mg PO DAILY PRN PRN Anxiety 06/30/13 [History Last Taken 07/02/13 0300] cholecalciferol (vitamin D3) 50 mcg (2,000 unit) capsule 2,000 unit PO DAILY 02/01/19 [History Last Taken Unknown] lutein 20 mg capsule 20 mg PO DAILY 02/01/19 [History Last Taken Unknown] aspirin 81 mg tablet,delayed release (Adult Low Dose Aspirin) 81 mg PO DAILY 04/04/21 [History Last Taken Unknown] carvedilol 25 mg tablet 25 mg PO QPM HEART/BP #90 tabs 08/14/21 [Rx Last Taken Unknown] diltiazem HCl 120 mg capsule,extended release 24 hr 120 mg PO QDAY BP/HEART #90 caps 08/20/21 [Rx Last Taken Unknown] ramipril 10 mg capsule 10 mg PO DAILY BP #90 caps 08/20/21 [Rx Last Taken Unknown] carvedilol 12.5 mg tablet 12.5 mg PO BREAKFAST BP/HEART #90 tabs 01/03/22 [Rx Last Taken Unknown] cyanocobalamin (vitamin B-12) 2,500 mcg tablet 2,500 mcg PO DAILY 02/11/22 [History Last Taken Unknown] sertraline 25 mg tablet 12.5 mg PO DAILY DEPRESSION 02/11/22 [History Last Taken Unknown] Allergy/AdvReac Type Severity Reaction Status Date / Time pollen extracts Allergy Mild COLD SXS Verified 03/26/22 11:34 Family History Sister CAD (coronary artery disease) coronary stent Surgical History History of left heart catheterization (02/05/05) Hx of cholecystectomy Presence of biventricular implantable cardioverter-defibrillator (ICD) (04/02/17) Social History Smoking Status: Never smoker ROS ROS ED ROS Narrative Constitutional: No fever, no chills. HEENT: No sore throat. No neck pain. No loss of vision. Positive epistaxis. Cardiovascular: No chest pain. No palpitations. No pedal edema. Respiratory: No cough, no shortness of breath. Abdominal: No abdominal pain. No nausea. No vomiting. Genitourinary: No dysuria. No hematuria. Musculoskeletal: No myalgias. No arthralgias. Neurologic: No headaches. No dizziness. No lightheadedness. Skin: No rash. No change in color. Psychiatric: No depression. No anxiety. EXAM Physical Exam Narrative Exam Narrative: Afebrile. Vital signs noted. No active bleeding diathesis noted on examination. HEENT: Normocephalic. Atraumatic. PERRL, EOMI. Neck soft and supple. No point tenderness or step off. Dried blood around right naris. No posterior pharynx bleeding. Cardiovascular: Regular rate and rhythm. No murmurs, rubs, or gallops appreciated. Respiratory: No tachypnea. Lungs clear to auscultation bilaterally. Gastrointestinal: Abdomen soft, nontender, with normoactive bowel sounds. No rebound or guarding. Neurological: Awake. Alert. Nonfocal, nonlateralizing. Skin: No rash. Normal color. No pallor. Musculoskeletal: No pedal edema. Full range of motion extremities. Const Vital Signs: 03/26/22 11:35 Temperature 98.9 F Temperature Source Temporal Pulse Rate 72 Respiratory Rate 16 Blood Pressure 160/111 H Blood Pressure Mean 127 MDM MDM MDM Narrative Medical decision making narrative: Nasal clamp was left in place. I discussed the possibility of nasal packing versus rapid Rhino with the patient. She states that she would like to avoid any type of packing as she believes that the bleeding has stopped. Her nasal clamp was removed and there has been no evidence of rebleeding. Her nares are patent and there is no evidence of clot. She states she is able to breathe through her nose. She has declined any type of nasal packing as the bleeding has stopped. She has an ENT in [place] with whom she will follow-up. She was told of the risk of rebleeding without nasal packing and acknowledges an understanding. Through shared decision-making, she will be discharged with follow-up to her ENT. Return instructions were reviewed. Disposition is discharged home in stable condition. Discharge Plan Triage Chief Complaint: Nosebleed ED Provider: Hector Rodriguez Dx/Rx/DC Orders Clinical Impression: Epistaxis, Essential (primary) hypertension Instructions: ED Epistaxis (Adult) Prescriptions: No Action cholecalciferol (vitamin D3) 2,000 unit capsule 2,000 unit PO DAILY lutein 20 mg capsule 20 mg PO DAILY aspirin [Adult Low Dose Aspirin] 81 mg tablet,delayed release (DR/EC) 81 mg PO DAILY cyanocobalamin (vitamin B-12) 2,500 mcg tablet 2,500 mcg PO DAILY lorazepam 0.5 MG tablet 0.5 mg PO DAILY PRN PRN (Reason: Anxiety) sertraline 25 mg tablet 12.5 mg PO DAILY carvedilol 25 mg tablet 25 mg PO QPM Qty: 90 3RF Rx Instructions: TAKES 12.5 MG Q AM, 25 MG QHS ramipril 10 mg capsule 10 mg PO DAILY Qty: 90 3RF diltiazem HCl 120 mg capsule,extended release 24hr 120 mg PO QDAY Qty: 90 3RF carvedilol 12.5 mg tablet 12.5 mg PO BREAKFAST Qty: 90 3RF Rx Instructions: TAKES 12.5 MG Q AM, 25 MG QHS Primary Care Provider: Mariana Lugo Referrals: Mariana Lugo DO [Primary Care Provider] - Activity Restrictions/Additional Instructions: There is a chance that ear nose could rebleed without packing. Follow-up with your ENT doctor at [place] as soon as possible within the next few days. Return with any increased bleeding that does not stop using your nasal clamp after 15 to 20 minutes. Disposition Disposition: Home, Self Care
--- NOTE | 2022-03-26 13:30 | ED.RN ---
Pt had nose clamp off with no continual bleeding. pt is going to be discharged.
[2022-03-26 13:38] VITALS: BP 145/90; RESP 18
== END 2022-03-26 13:40 | disposition home or self-care (01) ==
PROVIDERS: Emergency Provider Emergency Medicine; PCP Family Medicine; Visit Provider Emergency Medicine
DX: R04.0 Epistaxis (principal); I10 Essential (primary) hypertension; E78.5 Hyperlipidemia, unspecified; I25.10 Atherosclerotic heart disease of native coronary artery without angina pectoris; Z79.82 Long term (current) use of aspirin; Z79.899 Other long term (current) drug therapy
CPT/HCPCS: 99282

== ENCOUNTER → 2022-10-13 | Outpatient (CLI) | payer MEDICARE, OTHER, SELFPAY ==
[2022-10-13 11:58] LABS: Absolute Lymphocyte Count 2.01 X10^3/uL (0.83-4.51); Absolute Neutrophil Count 4.5 X10^3/uL (2.0-7.7); Basophil# 0.07 X10^3/uL; Basophil% 0.9 % (0-1); Eosinophil# 0.34 X10^3/uL; Eosinophils% 4.6 % (0-5); Hematocrit 43.7 % (37-47); Hemoglobin 13.7 g/dL (12.0-15.0); Lymphocyte # 2.01 X10^3/ul (0.83-4.51); Lymphocyte % 27.2 % (19-41); Mean Corp Hgb Conc 31.4 g/dL (32-36); Mean Corpuscular Hgb 29.5 pg (27.0-32.0); Mean Platelet Vol. 9.5 fl (6.2-12.0); Monocyte# 0.44 X10^3/uL; Monocyte% 5.9 % (0-10); NRBC Flagged by Analyzer 0 % (0-5); Neutrophil # 4.46 X10^3/uL (2.7-7.7); Neutrophil % 60.3 % (47-70); Platelet Count 291 K/mm3 (150-450); RBC Distribution Width CV 14.3 % (11.6-14.6); RBC Distribution Width SD 49.3 fl (35.1-43.9); Red Blood Count 4.65 M/mm3 (4.2-5.4); White Blood Count 7.4 K/mm3 (4.4-11.0)
[2022-10-13 12:09] LABS: Vitamin D,25 Hydroxy 67.9 ng/mL
[2022-10-13 12:15] LABS: ALB/GLOB Ratio 0.9 RATIO (0.9-2.4); AST(SGOT) 23 U/L (15-37); Alanine Aminotransfer ALT/SGPT 27 U/L (13-56); Albumin, Serum 3.6 g/dL (3.2-5.0); Alkaline Phosphatase 72 U/L (45-117); Anion Gap 5 (5-15); BUN 17 mg/dL (7-18); BUN/Creat Ratio 17.5 RATIO (10-20); Calcium,Total 9.5 mg/dL (8.5-10.1); Chloride 107 mmol/L (98-107); Cholesterol 239 mg/dL (200); Creatinine, Serum 0.97 mg/dL (0.55-1.02); EST Glomerular Filtration Rate 59 mL/min (>60); Est Glom Filt Rate - Afr Amer 72 mL/min (>60); Free T3 2.7 pg/mL (2.18-3.98); Globulin 4.1 g/dL (2.2-4.2); Glucose 103 mg/dL (74-106); High Density Lipoprotein 81 mg/dL; Potassium 4.5 mmol/L (3.5-5.1); Protein, Total 7.7 g/dL (6.4-8.2); Sodium Level 139 mmol/L (136-145); T4 Free Direct 1.09 ng/dL (0.76-1.46); Thyroid Stim Hormone (TSH) 2.13 uIU/mL (0.358-3.74); Triglycerides 140 mg/dL; Very Low Density Lipoprotein 28 mg/dL (5-40)
== END | disposition home or self-care (01) ==
LOC: BFHLAB 09:32
PROVIDERS: PCP Family Medicine; Visit Provider Family Medicine
DX: E03.9 Hypothyroidism, unspecified (principal); E78.5 Hyperlipidemia, unspecified; E55.9 Vitamin D deficiency, unspecified; Z51.81 Encounter for therapeutic drug level monitoring
CPT/HCPCS: 36415; 80053; 80061; 82306; 84439; 84443; 84481; 85025

== ENCOUNTER → 2023-01-27 | Outpatient (CLI) | payer MEDICARE, OTHER, SELFPAY ==
[2023-01-27 12:24] LABS: Hematocrit 42.3 % (37-47); Hemoglobin 13.4 g/dL (12.0-15.0); Mean Corp Hgb Conc 31.7 g/dL (32-36); Mean Corpuscular Volume 94.8 fL (81-99); Mean Platelet Vol. 9.3 fl (6.2-12.0); Platelet Count 275 K/mm3 (150-450); RBC Distribution Width CV 13.9 % (11.6-14.6); RBC Distribution Width SD 48.6 fl (35.1-43.9); Red Blood Count 4.46 M/mm3 (4.2-5.4); White Blood Count 9.2 K/mm3 (4.4-11.0)
[2023-01-27 12:47] LABS: BNP,B-Type NATRIURETIC PEPTIDE 87.9 pg/mL (0-100)
[2023-01-27 13:11] LABS: Anion Gap 5 (5-15); BUN 20 mg/dL (7-18); BUN/Creat Ratio 23.4 RATIO (10-20); Calcium,Total 9.2 mg/dL (8.5-10.1); Chloride 109 mmol/L (98-107); Creatinine, Serum 0.85 mg/dL (0.55-1.02); EST Glomerular Filtration Rate 69 mL/min (>60); Est Glom Filt Rate - Afr Amer 83 mL/min (>60); Glucose 107 mg/dL (74-106); Potassium 4.2 mmol/L (3.5-5.1); Sodium Level 140 mmol/L (136-145); Thyroid Stim Hormone (TSH) 2.87 uIU/mL (0.358-3.74)
== END | disposition home or self-care (01) ==
LOC: LAB 11:57
PROVIDERS: PCP Family Medicine; Referring Provider Internal Medicine Cardiovascular Disease; Visit Provider Internal Medicine Cardiovascular Disease
DX: I48.0 Paroxysmal atrial fibrillation (principal); I42.8 Other cardiomyopathies; R53.83 Other fatigue
CPT/HCPCS: 36415; 80048; 83880; 84443; 85027

== ENCOUNTER → 2023-01-28 | Outpatient (CLI) | payer MEDICARE, OTHER, SELFPAY ==
[2023-02-09 10:46] LABS: Source Not Provided
[2023-02-09 10:47] LABS: Uric Acid 100
== END | disposition home or self-care (01) ==
LOC: LABSPEC 13:05
PROVIDERS: PCP Family Medicine; Referring Provider Family Medicine; Visit Provider Family Medicine
DX: N20.0 Calculus of kidney (principal)
CPT/HCPCS: 82360

== ENCOUNTER → 2023-03-26 | Outpatient (CLI) | payer MEDICARE, OTHER, SELFPAY ==
--- NOTE | 2023-03-26 12:39 | ECHOD_ITS ---
Reason For Study: CARDIOMYOPATHY Procedure This was a 2D Doppler, Color Flow transthoracic echocardiogram. Exam performed in department. Left Ventricle Normal LV size. Mild concentric left ventricular hypertrophy. Left ventricular systolic function is normal. The estimated ejection fraction is 55 %. No regional wall motion abnormalities noted. Right Ventricle Normal RV size. ICD or pacer leads identified within the right ventricle. Normal systolic function. Atria The left and right atria are normal. Normal right atrium. Mitral Valve Normal mitral valve. Mild (1+) eccentric mitral valve insufficiency. Tricuspid Valve Normal tricuspid valve. Mild (1+) tricuspid valve insufficiency. Pulmonary artery systolic pressure is 35 mmHg. Aortic Valve Trisinus/trileaflet aortic valve. Mild (1+) aortic valve insufficiency. Pulmonic Valve Normal pulmonic valve. Great Vessels Mildly dilated aortic root. The pulmonary artery is normal size. Inferior vena cava collapse with respiration. Pericardium/Pleural No pericardial effusion. MMode/2D Measurements & Calculations LVIDd: 4.8 cm IVSd: 1.2 cm Ao root diam: 3.8 cm LVIDs: 3.0 cm LVPWd: 1.2 cm RVDd: 3.6 cm FS: 37.9 % LAV(MOD-bp): 68.4 ml LA A4 area: 21.0 cm2 LA dimension(2D): 4.0 cm LAV(MOD-bp) Indexed: 35.4 ml/m2 LAV(MOD-sp2): 67.8 ml LAV(MOD-sp4): 68.6 ml RA A4 area: 19.3 cm2 Time Measurements MV dec time: 0.15 sec Doppler Measurements & Calculations MV E max santiago: 74.2 cm/sec Lat Peak E' Santiago: 11.4 cm/sec Med Peak E' Santiago: 11.3 cm/sec MV A max santiago: 97.3 cm/sec E/E' lat: 6.5 E/E' med: 6.6 MV E/A: 0.76 MV V2 max: 96.4 cm/sec MV dec slope: 480.7 cm/sec2 Ao V2 max: 135.3 cm/sec MV max P.7 mmHg Ao max P.3 mmHg MV V2 mean: 53.9 cm/sec Ao V2 mean: 89.7 cm/sec MV mean P.4 mmHg Ao mean P.7 mmHg MV V2 VTI: 26.2 cm Ao V2 VTI: 29.0 cm AV (velocity ratio): 0.65 AI max santiago: 420.3 cm/sec LV V1 max: 80.8 cm/sec PA V2 max: 77.1 cm/sec AI max P.7 mmHg LV V1 max P.6 mmHg PA V2 mean: 54.1 cm/sec AI dec slope: 173.7 cm/sec2 LV V1 mean P.5 mmHg PA V2 VTI: 17.0 cm AI P1/2t: 708.7 msec LV V1 mean: 57.5 cm/sec LV V1 VTI: 18.9 cm TR max santiago: 276.3 cm/sec TR max P.5 mmHg ECHO/Echo Complete Interpretation Summary Normal LV size. Left ventricular systolic function is normal. The estimated ejection fraction is 55 %. Pulmonary artery systolic pressure is 35 mmHg. Mild (1+) aortic valve insufficiency. Mild concentric left ventricular hypertrophy. Compared to previous study, the left ventricular systolic function is the same. . Ordering Physician: Leesa Estevez Referring Physician: Mariana Lugo Performed By: Kusum Dwyer RDCS, RVT
== END | disposition home or self-care (01) ==
LOC: CVS 12:34
PROVIDERS: PCP Family Medicine; Referring Provider Nurse Practitioner Gerontology; Visit Provider Nurse Practitioner Gerontology
DX: I42.8 Other cardiomyopathies (principal); Z95.810 Presence of automatic (implantable) cardiac defibrillator
CPT/HCPCS: 93306

== ENCOUNTER → 2023-07-23 | Outpatient (CLI) | payer MEDICARE, OTHER, SELFPAY ==
--- NOTE | 2023-07-23 12:45 | RAD_ITS ---
STUDY: X-RAY CHEST REASON FOR EXAM: Female, 78 years old. Cough. TECHNIQUE: Frontal and lateral views of the chest. COMPARISON: June 05, 2017 FINDINGS: Mild hyperinflation unchanged. There is no demonstrated pleural abnormality. Stable cardiomegaly with dual lead cardiac pacer, unchanged. Normal mediastinum and es. Normal visualized pulmonary arteries. Normal visualized aortic arch and descending thoracic aorta. Normal visualized thoracic spine. Normal visualized ribs, clavicles, and shoulders. No abnormality of the visualized soft tissue structures of the upper abdomen. RAD/Chest PA and Lateral IMPRESSION: Stable chest with no acute or active cardiopulmonary disease. Electronically Signed: Bryan Olguin MD at 13:11 EST ,
== END | disposition home or self-care (01) ==
LOC: RAD 12:41
PROVIDERS: PCP Family Medicine; Referring Provider Internal Medicine Pulmonary Disease; Visit Provider Internal Medicine Pulmonary Disease
DX: R05.9 Cough, unspecified (principal)
CPT/HCPCS: 71046

== ENCOUNTER → 2023-08-26 | Outpatient (CLI) | payer MEDICARE, OTHER, SELFPAY ==
--- NOTE | 2023-08-26 14:04 | BI_ITS ---
MAMMOGRAPHY - BILATERAL SCREENING REASON FOR EXAM: Female, 78 years old. Routine annual screening examination. PERTINENT HISTORY: Non-contributory. TECHNIQUE: Digital bilateral breast lakhwinder (3D mammographic acquisition) in the CC and MLO projections. 2-D mediolateral oblique (MLO) and craniocaudad (CC) views of both breasts were obtained. CAD: Full Field Digital Mammography with Computer Added Detection was performed. COMPARISON: Comparison is made with prior study dated August 26, 2021 and January 31, 2020. FINDINGS: Breast Composition: The breasts are almost entirely fatty. There are no dominant masses or suspicious calcifications. Stable benign-appearing right axillary lymph nodes. A pacemaker battery pack is seen in the left axilla. No other significant abnormalities are identified. There has been no significant change since the prior study. BI/SCRN MAMM (CAD)W/LAKHWINDER BILAT IMPRESSION: Stable bilateral screening mammogram. Yearly follow-up mammogram recommended. (A) ASSESSMENT CATEGORY: BIRADS Category 2: Benign. A letter regarding these results will be sent to the patient by the facility within 30 days. Approximately 10% of breast cancers are not detected by mammography. A normal mammogram should not delay biopsy of a clinically suspicious abnormality. [id number] Electronically Signed: Ton Tipton MD at 15:06 EST ,
--- OUTSIDE RECORDS SUMMARY | 2023-08-26 17:47 | XMS RPT_ITS | CCD ---
Author Name Unknown Address [id number] [place] [address] Organization [facility] Care Team Providers Care [employer] Name Role Phone JANET Moreno, Melissa Salazar Unavailable Unavailable JANET Moreno Sue M Unavailable Unavailable Fast, Sue A Unavailable Unavailable Elpidio Vicente Unavailable Unavailable Elpidio Vicente Unavailable Unavailable No Doctor Assigned, Nodr Unavailable Unavail able Gurinder Marcial Unavailable Unavailable Gurinder Marcial Unavailable Unavailable No Doctor Assigned, Nodr Unavailable Unavail able Malys, Mariana A Unavailable Brittney, Mariana A Unavailable Nany Tellez Unavailable Unavailable Mariana Lugo DO Primary Care Provider [phone] ELPIDIO VICENTE Referring Unavailable MARIANA ULGO Primary Care Unavailable Allergies Allergy Classification Reported Allergen(s) Allergy Type Date of Onset Reaction(s) Facility (1 source) No Known Medication Allergies; Translations: [No Known Medication Allergies] Propensity to adverse reactions to drug (disorder) [facility] Repository (1 source) ALLERGIES NOT ON FILE; Translations: [ALLERGIES NOT ON FILE] Propensity to adverse reactions (disorder) [facility] 2 Repository Medications Current Medications Medication Drug Class(es) Dates Sig (Normalized) Sig (Original) amoxicillin 875 mg / clavulanate 125 mg oral tablet (1 source) Penicillin-class Antibacterial Start: 12-20-2021 End: 12-29-2021 take 1 tablet by mouth twice daily at mealtime amoxicillin-clavul anate 875 mg-125 mg oral tablet ; 1 tab(s) orally 2 times a day x 10 days. Take with food. Quantity: 20 Refills: 0 Ordered: 20-Dec-2021 Nany Tellez Start: 20-Dec-2021 End: 29-Dec-2021 Generic Substitution Allowed Comments: Finish all this medication unless otherwise directed by prescriber.Take with food or milk. Completed/Discontinued Medications Medication Drug Class(es) Dates Sig (Normalized) Sig (Original) acetaminophen (4 sources) Start: 11-19-2010 End: 08-27-2011 ACETAMINOPHEN ER CR-TABS (Midrin) [id number], As needed ACETAMINOPHEN CR-TABS [id number] Leela Quintero RN Problems Active Problems Problem Classification Problem Date Documented Da te Episodic/Chronic Cardiac dysrhythmias (2 sources) Paroxysmal atrial fibrillation; Translations: [Paroxysmal atrial fibrillation] Onset: 11-19-2010 11-19-2010 Chronic Conduction disorders (2 sources) Left bundle branch block; Translations: [Left bundle-branch block, unspecified] Onset: 11-19-2010 11-19-2010 Chronic Congestive heart failure; nonhypertensive (2 sources) Congestive heart failure; Translations: [Heart failure, unspecified] Onset: 11-19-2010 11-19-2010 Chronic Disorders of lipid metabolism (2 sources) Hyperlipidemia; Translations: [Hyperlipidemia, unspecified] Onset: 02-05-2016 02-05-2016 Chronic E Codes: Natural/environment (2 sources) Dog bite 12-20-2021 Past or Other Problems Problem Classification Problem Date Documented Date Episodic/Chronic Deficiency and other anemia (2 sources) Anemia; Translations: [Anemia, unspecified] Onset: 04-08-2017 04-08-2017 Episodic Unclassified (6 sources) Electrocardiogram abnormal; Translations: [Abnormal electrocardiogram [ECG] [EKG]] Onset: 11-19-2010 Resolved: 02-06-2016 11-19-2010 Episodic Unclassified (4 sources) Body mass index (BMI) 28.0-28.9, adult; Translations: [FH: Raised blood lipids] Onset: 01-24-2014 01-24-2014 Episodic Results Test Name Value Interpretation Reference Range Facil ity Vital Signs Date Time Vital Sign Value Performing Clinician Facility 12-20-2021 [id number] Body height 167.6 cm Mariana Lugo Other Phone: [facility] 12-20-2021 13:34-0400 Body temperature 97.34 [degF] Mariana Lugo Other Phone: [facility] 12-20-2021 13:34-0400 Diastolic blood pressure 90 mm[Hg] Mariana Toniys Other Phone: [facility] 12-20-2021 13:34-0400 Heart rate 71 /min Mariana Toniys Other Phone: [facility] 12-20-2021 13:34-0400 Respiratory rate 16 /min Mariana Toniys Other Phone: [facility] 12-20-2021 13:34-0400 SaO2% (BldA) [Mass fraction] 95 % Mariana Muñozys Other Phone: [facility] 12-20-2021 13:34-0400 Systolic blood pressure 167 mm[Hg] Mariana Lugo Other Phone: [facility] 03-17-2017 14:37-0400 BMI (Body Mass Index) 28.57 kg/m2 JANET [facility] Work Phone: 03-17-2017 14:37-0400 Height 167.64 cm JANET [facility] Work Phone: 03-17-2017 14:37-0400 Respiratory Rate 20 /min JANET [facility] Work Phone: 03-17-2017 14:37-0400 Weight 80.29 kg JANET [facility] Work Phone: 11-13-2016 08:46-0400 BP Diastolic 86 mm[Hg] JANET [facility] Work Phone: 11-13-2016 08:46-0400 BP Systolic 140 mm[Hg] JANET [facility] Work Phone: 11-13-2016 08:46-0400 Pulse (Heart Rate) 68 /min JANET [facility] Work Phone: [id number] BSA (Body Surface Area) 1.88 m2 Melissa Moreno RN [facility] Work Phone: Encounters Encounter Date Encounter Type Care Provider Facility Start: 07-29-2023 End: 07-30-2023 ambulatory ELPIDIO VICENTE [facility] Start: 07-29-2023 End: 07-29-2023 Subsequent hospital visit by physician Rangel Cintron 1 [facility] Procedures Date Procedure Procedure Detail Performing Clinician Start: 07-29-2023 CT SINUS WO IV CONTRAST ELPIDIO VICENTE Start: 07-29-2023 Ct maxillofacial w/o contrast material Elpidio Vicente MD Work Phone: Start: 05-06-2017 End: 05-06-2017 CBC W Auto Differential panel - Blood Raciel Louie MD Start: 05-06-2017 End: 05-06-2017 Prgrmg eval implantable in person multi lead dfb Raciel Louie MD Start: 04-23-2017 End: 04-23-2017 CBC W Auto Differential panel - Blood Raciel Louie MD Start: 04-23-2017 End: 04-23-2017 Nurse, Teaching, Wound Check (no charge) Rhea Reese PA-C Work Phone: Start: 04-16-2017 End: 04-16-2017 Nurse, Teaching, Wound Check (no charge) Rhea Reese PA-C Work Phone: Start: 04-10-2017 End: 04-16-2017 CBC W Auto Differential panel - Blood Raciel Louie MD Start: 04-10-2017 End: 04-10-2017 Nurse, Teaching, Wound Check (no charge) Raciel Louie MD Start: 04-08-2017 End: 04-08-2017 CBC W Auto Differential panel - Blood Raciel Louie MD Start: 04-08-2017 End: 04-08-2017 Nurse, Teaching, Wound Check (no charge) Raciel Louie MD Start: 04-06-2017 End: 04-13-2017 CBC W Auto Differential panel - Blood Raciel Louie MD Start: 04-06-2017 End: 04-06-2017 INR in Platelet poor plasma by Coagulation assay Raciel Louie MD Start: 04-06-2017 End: 04-06-2017 Nurse, Teaching, Wound Check (no charge) Rhea Reese PA-C Work Phone: Start: 04-02-2017 End: 04-06-2017 INR in Platelet poor plasma by Coagulation assay Raciel Louie MD Start: 03-24-2017 End: 03-25-2017 *UA - Urinalysis w/o Micro Raciel Louie MD Start: 03-24-2017 End: 04-06-2017 Chest x-ray Raciel Louie MD Start: 03-17-2017 End: 03-17-2017 *BMP Raciel Louie MD Start: 03-17-2017 End: 03-18-2017 *UA - Urinalysis w/o Micro Raciel Louie MD Start: 03-17-2017 End: 03-17-2017 CBC W Auto Differential panel - Blood Raciel Louie MD Start: 03-17-2017 End: 03-24-2017 Chest x-ray Raciel Louie MD Start: 03-17-2017 End: 04-06-2017 Ecg routine ecg w/least 12 lds w/i&r Raciel Louie MD Start: 03-17-2017 End: 03-17-2017 Nurse, Teaching, Wound Check (no charge) Raciel Louie MD Start: 03-17-2017 End: 04-06-2017 Pacemaker Generator Change Raciel Louie MD Start: 02-27-2017 End: 02-27-2017 Prgrmg eval implantable in person multi lead dfb Raciel Louie MD Start: 01-05-2017 End: 01-05-2017 Prgrmg eval implantable in person multi lead dfb Rhea Reese PA-C Work Phone: Start: 09-26-2016 End: 04-06-2017 Follow Up Appt 3 months Martin Schaefer Start: 09-26-2016 End: 04-06-2017 Pacer Clinic Raciel Louie MD Start: 09-26-2016 End: 09-26-2016 Prgrmg eval implantable in person multi lead dfb Raciel Louie MD Start: 06-20-2016 End: 04-06-2017 Follow Up Appt 3 months Martin Schaefer Start: 06-20-2016 End: 04-06-2017 Pacer Clinic Raciel Louie MD Start: 06-20-2016 End: 06-20-2016 Prgrmg eval implantable in person multi lead dfb Raciel Louie MD Start: 05-13-2016 End: 05-13-2016 Follow Up Appt 6 months Martin Schaefer Start: 05-13-2016 End: 05-13-2016 MARI Louie MD Start: 03-18-2016 End: 04-06-2017 Follow Up Appt 3 months Martin Schaefer Start: 03-18-2016 End: 04-06-2017 Pacer Clinic Raciel Louie MD Start: 03-18-2016 End: 03-18-2016 Prgrmg eval implantable in person multi lead dfb Raciel Louie MD Start: 02-12-2016 End: 02-12-2016 [facility] Raciel Louie MD Start: 02-12-2016 End: 02-26-2016 Ecg routine ecg w/least 12 lds w/i&r Raciel Louie MD Start: 02-12-2016 End: 02-26-2016 Echocardiography Raciel Louie MD Start: 02-12-2016 End: 02-12-2016 Follow Up Appt 3 months Martin Schaefer Start: 02-12-2016 End: 02-12-2016 INR in Platelet poor plasma by Coagulation assay Raciel Louie MD Start: 02-12-2016 End: 02-26-2016 Nuclear stress test -Lexiscan Raciel Miner MD Start: 02-05-2016 End: 02-05-2016 *BMP Rhea Reese PA-C Work Phone: Start: 02-05-2016 End: 02-05-2016 *CBC with Differential Rhea ambrose PA-C Work Phone: Start: 02-05-2016 End: 02-05-2016 *Hepatic Function Panel Rhea goff PA-C Work Phone: Start: 02-05-2016 End: 02-05-2016 Follow Up Appt Other Rhea gomez PA-C Work Phone: Start: 02-05-2016 End: 02-05-2016 Prgrmg eval implantable in person multi lead dfb Rhea Reese PA-C Work Phone: Start: 02-05-2016 End: 02-05-2016 Thyrotropin [Units/volume] in Serum or Plasma Rhea Reese PA-C Work Phone: Start: 02-05-2016 End: 02-05-2016 Thyroxine (T4) [Mass/volume] in Serum or Plasma Rhea Reese PA-C Work Phone: Start: 02-05-2016 End: 02-05-2016 Lipid 1996 panel - Serum or Plasma Rhea Reese PA-C Work Phone: Start: 11-20-2015 End: 02-05-2016 Follow Up Appt 3 months Martin Schaefer Start: 11-20-2015 End: 02-05-2016 Pacer Clinic Raciel Louie MD Start: 11-20-2015 End: 11-20-2015 Prgrmg eval implantable in person multi lead dfb Raciel Louie MD Start: 08-14-2015 End: 02-05-2016 Follow Up Appt 3 months Martin Schaefer Start: 08-14-2015 End: 02-05-2016 Pacer Clinic Raciel Louie MD Start: 08-14-2015 End: 08-15-2015 Prgrmg eval implantable in person multi lead dfb Raciel Louie MD Start: 08-07-2015 End: 08-07-2015 [facility] Rhea Reese PA-C Work Phone: Start: 08-07-2015 End: 08-07-2015 Follow Up Appt 6 months Rhea goff PA-C Work Phone: Start: 04-23-2015 End: 07-25-2015 Follow Up Appt 3 months Rhea goff PA-C Work Phone: Start: 04-23-2015 End: 07-25-2015 Pacer Clinic Rhea Reese PA-C Work Phone: Start: 04-23-2015 End: 04-23-2015 Prgrmg eval implantable in person multi lead dfb Rhea Reese PA-C Work Phone: Start: 01-23-2015 End: 01-24-2015 Documentation of current medications Raciel Louie MD Start: 01-23-2015 End: 07-25-2015 Follow Up Appt 3 months Martin Schaefer Start: 01-23-2015 End: 01-23-2015 Follow Up Appt 6 months Martin Schaefer Start: 01-23-2015 End: 01-23-2015 [facility] Raciel Louie MD Start: 01-23-2015 End: 07-25-2015 Pacer Clinic Raciel Louie MD Start: 01-23-2015 End: 01-24-2015 Prgrmg eval implantable in person multi lead dfb Raciel Louie MD Start: 10-24-2014 End: 07-25-2015 Follow Up Appt 3 months Martin Schaefer Start: 10-24-2014 End: 07-25-2015 Pacer Clinic Raciel Louie MD Start: 10-24-2014 End: 10-24-2014 Prgrmg eval implantable in person multi lead dfb Raciel Louie MD Start: 07-24-2014 End: 07-24-2014 [facility] Rhea Reese PA-C Work Phone: Start: 07-24-2014 End: 07-25-2015 Follow Up Appt 3 months Rhea goff PA-C Work Phone: Start: 07-24-2014 End: 07-24-2014 Follow Up Appt 6 months Rhea goff PA-C Work Phone: Start: 07-24-2014 End: 07-25-2015 Pacer Clinic Rhea Reese PA-C Work Phone: Start: 07-24-2014 End: 07-24-2014 Prgrmg eval implantable in person multi lead dfb Rhea Reese PA-C Work Phone: Start: 04-27-2014 End: 07-18-2014 Follow Up Appt 3 months Rhea goff PA-C Work Phone: Start: 04-27-2014 End: 07-18-2014 Pacer Clinic Raciel Louie MD Start: 04-27-2014 End: 04-27-2014 Prgrmg eval implantable in person multi lead dfb Rhea Reese PA-C Work Phone: Start: 01-24-2014 End: 01-24-2014 Follow Up Appt 3 months Martin Schaefer Start: 01-24-2014 End: 01-24-2014 Follow Up Appt 6 months Martin Schaefer Start: 01-24-2014 End: 01-24-2014 MM Raciel Louie MD Start: 01-24-2014 End: 01-24-2014 [facility] Raciel Louie MD Start: 01-24-2014 End: 01-24-2014 Prgrmg eval implantable in person multi lead dfb Raciel Louie MD Start: 10-20-2013 End: 07-18-2014 Follow Up Appt 3 months Martin Schaefer Start: 10-20-2013 End: 07-18-2014 Pacer Clinic Raciel Louie MD Start: 10-20-2013 End: 10-20-2013 Prgrmg eval implantable in person multi lead dfb Raciel Louie MD Start: 09-19-2013 End: 09-19-2013 [facility] Rhea Reese PA-C Work Phone: Start: 09-19-2013 End: 09-19-2013 Follow Up Appt 4 months Rhea goff PA-C Work Phone: Start: 07-22-2013 End: 09-13-2013 Follow Up Appt 3 months Martin Schaefer Start: 07-22-2013 End: 09-13-2013 Pac[facility] Clinic Raciel Louie MD Start: 07-22-2013 End: 07-22-2013 Prgrmg eval implantable in person multi lead dfb Raciel Louie MD Start: 07-15-2013 End: 07-15-2013 Follow Up Appt 2 months Martin Schaefer Start: 07-15-2013 End: 07-15-2013 MMM Raciel Louie MD Start: 07-05-2013 End: 07-18-2014 *BMP Aime Boyd MD Start: 07-05-2013 End: 07-18-2014 Digoxin [Mass/volume] in Serum or Plasma Aime Boyd MD Start: 04-15-2013 End: 09-13-2013 VERNON Reese PA-C Work Phone: Start: 04-15-2013 End: 09-13-2013 Follow Up Appt 3 months Martin Schaefer Start: 04-15-2013 End: 09-13-2013 Follow Up Appt 6 months Rhea goff PA-C Work Phone: Start: 04-15-2013 End: 09-13-2013 Pac[facility] Clinic Raciel Louie MD Start: 04-15-2013 End: 04-15-2013 Prgrmg eval implantable in person multi lead dfb Raciel Louie MD Start: 01-12-2013 End: 04-12-2013 Follow Up Appt 3 months Martin Schaefer Start: 01-12-2013 End: 04-12-2013 Pacer Clinic Raciel Louie MD Start: 01-12-2013 End: 01-12-2013 Prgrmg eval implantable in person multi lead dfb Raciel Louie MD Start: 10-12-2012 End: 04-12-2013 Follow Up Appt 3 months Martin Schaefer Start: 10-12-2012 End: 10-12-2012 Follow Up Appt 6 months Martin Schaefer Start: 10-12-2012 End: 10-12-2012 MM Raciel Louie MD Start: 10-12-2012 End: 04-12-2013 Pacer Clinic Raciel Louie MD Start: 10-12-2012 End: 10-12-2012 Prgrmg eval implantable in person multi lead dfb Raciel Louie MD Start: 03-09-2012 End: 03-09-2012 Follow Up Appt 6 months Martin Schaefer Start: 08-27-2011 End: 08-27-2011 Follow Up Appt 6 months Martin Schaefer Plan of Treatment Date Care Activity Detail Author Start: 07-14-2022 COVID-19 Vaccine (4 - Moderna series) COVID-19 Vaccine (4 - Moderna series) [facility] Start: 12-20-2021 End: 12-21-2022 Diphtheria - Tetanus Toxoid (TENIVAC) Vaccine 0.5 mL IntraMuscular Once ; (TENIVAC)DOSE = 0.5 mL IntraMuscular Once Start: 20-Dec-2021 End: 20-Dec-2022 Ordered: 20-Dec-2021 Nany Tellez Intent [facility] Start: 08-23-2021 [email or web address], Provider: Padmini Elena, Status: Pen, Time: 10:00 AM PTFUADULT4, Provider: Padmini Elena, Status: Pen, [facility]: 10:00 [facility] Work Phone: Start: 08-19-2021 PTRGREGORIA, Provider: Elise Nieves, Status: Pen, Time: 2:45 PM PTRECHECKChitra, Provider: Elise Nieves, Status: Pen, Time: 2:45 PM [facility] [place] Work Phone: Start: 08-16-2021 PTFUADULT4, Provider: Leigh Jimenez, Status: Pen, Time: 10:00 AM PTFUADULT4, Provider: Leigh Jimenez, Status: Pen, Time: 10:00 AM [facility] Work Phone: Start: 08-16-2021 [email or web address], Provider: Padmini Elena, Status: Pen, Time: 10:00 AM PTFUADULT4, Provider: Padmini Elena, Status: Pen, Time: 10:00 AM [facility] [place] Work Phone: Start: 08-12-2021 PTFUADULT4, Provider: Padmini Elena, Status: Pen, Time: 11:30 AM PTFUADULT4, Provider: Padmini Elena, Status: Pen, Time: 11:30 AM [facility] [place] Work Phone: Start: 08-12-2021 PTFUADULT4, Provider: Rom Kim, Status: Pen, Time: 11:30 AM PTFUADULT4, Provider: Rom Kim, Status: Pen, Time: 11:30 AM [facility] [place] Work Phone: Start: 08-09-2021 PTFUADULT4, Provider: Davina Humphrey, Status: Pen, Time: 10:45 AM PTFUADULT4, Provider: Davina Humphrey, Status: Pen, Time: 10:45 AM [facility] [place] Work Phone: Start: 08-09-2021 PTFUADULT4, Provider: Padmini Elena, Status: Pen, Time: 10:00 AM PTFUADULT4, Provider: Padmini Elena, Status: Pen, Time: 10:00 AM [facility] Work Phone: Start: 08-05-2021 PTFUADULT4, Provider: Padmini Elena, Status: Pen, Time: 2:00 PM PTFUADULT4, Provider: Padmini Elena, Status: Pen, Time: 2:00 PM [facility] Work Phone: Start: 02-04-2021 Lipid panel Lipid Panel [facility] Start: 08-11-2017 End: 08-11-2017 Appointment Appointment [facility] Work Phone: Start: 06-19-2017 End: 06-19-2017 Appointment Appointment [facility] Work Phone: Start: 06-02-2017 End: 05-06-2017 CBC W Auto Differential panel - Blood *CBC without Diff [facility] Work Phone: Start: 05-06-2017 End: 05-06-2017 CBC W Auto Differential panel - Blood *CBC without Diff [facility] Work Phone: Start: 05-06-2017 End: 05-06-2017 Follow Up Appt 3 months Follow Up Appt 3 months [facility] Work Phone: Start: 05-06-2017 End: 05-06-2017 Pacer Clinic [facility] Work Phone: Start: 04-23-2017 End: 04-23-2017 CBC W Auto Differential panel - Blood *CBC without Diff [facility] Work Phone: Start: 04-23-2017 End: 04-23-2017 Follow Up Appt 1 month Follow Up Appt 1 month [facility] Work Phone: Start: 04-23-2017 End: 04-23-2017 Pacer Clinic Pacer Clinic [facility] Work Phone: Start: 04-16-2017 End: 04-16-2017 *CBC with Differential *CBC with Differential [facility] Work Phone: Start: 04-10-2017 End: 04-16-2017 CBC W Auto Differential panel - Blood *CBC without Diff [facility] Work Phone: Start: 04-08-2017 End: 04-06-2017 CBC W Auto Differential panel - Blood *CBC without Diff [facility] Work Phone: Start: 04-08-2017 End: 04-06-2017 INR Coag RelTime (PPP) *PT/INR [facility] Work Phone: Start: 04-06-2017 End: 04-06-2017 CBC W Auto Differential panel - Blood *CBC without Diff [facility] Work Phone: Start: 04-02-2017 End: 04-06-2017 INR Coag RelTime (PPP) *PT/INR [facility] Work Phone: Start: 03-24-2017 End: 03-25-2017 *UA - Urinalysis w/o Micro *UA - Urinalysis w/o Micro [facility] Work Phone: Start: 03-24-2017 End: 04-06-2017 Chest x-ray X-Ray, Chest, PA & Lateral [facility] Work Phone: Start: 03-17-2017 End: 03-17-2017 *BMP *BMP [facility] Work Phone: Start: 03-17-2017 End: 03-18-2017 *UA - Urinalysis w/o Micro *UA - Urinalysis w/o Micro [facility] Work Phone: Start: 03-17-2017 End: 03-17-2017 CBC W Auto Differential panel - Blood *CBC without Diff [facility] Work Phone: Start: 03-17-2017 End: 03-24-2017 Chest x-ray X-Ray, Chest, PA & Lateral [facility] Work Phone: Start: 03-17-2017 End: 04-06-2017 Ecg routine ecg w/least 12 lds w/i&r EKG (In office) [facility] Work Phone: Start: 03-17-2017 End: 03-17-2017 Follow Up Appt 3 months Follow Up Appt 3 months [facility] Work Phone: Start: 03-17-2017 End: 03-17-2017 MMM MMM [facility] Work Phone: Start: 03-17-2017 End: 04-06-2017 Pacemaker Generator Change Pacemaker Generator Change [facility] Work Phone: Start: 01-05-2017 End: 01-05-2017 Follow Up Appt 2 months Follow Up Appt 2 months [facility] Work Phone: Start: 01-05-2017 End: 01-05-2017 Pacer Clinic Pac[facility] Work Phone: Start: 11-13-2016 End: 11-13-2016 [facility] Work Phone: Start: 11-13-2016 End: 11-13-2016 Follow Up Appt 6 months Follow Up Appt 6 months [facility] Work Phone: Start: 09-26-2016 End: 04-06-2017 Follow Up Appt 3 months Follow Up Appt 3 months [facility] Work Phone: Start: 09-26-2016 End: 04-06-2017 Pacer [facility] Pacer [facility] Work Phone: Start: 06-20-2016 End: 04-06-2017 Follow Up Appt 3 months Follow Up Appt 3 months [facility] Work Phone: Start: 06-20-2016 End: 04-06-2017 Pacer Clinic [facility] Work Phone: Start: 05-13-2016 End: 05-13-2016 Follow Up Appt 6 months Follow Up Appt 6 months [facility] Work Phone: Start: 05-13-2016 End: 05-13-2016 MMM MMM [facility] Work Phone: Start: 03-18-2016 End: 04-06-2017 Follow Up Appt 3 months Follow Up Appt 3 months [facility] Work Phone: Start: 03-18-2016 End: 04-06-2017 Pacer [facility] Pacer [facility] Work Phone: Start: 02-12-2016 End: 02-12-2016 [facility] Work Phone: Start: 02-12-2016 End: 02-26-2016 Ecg routine ecg w/least 12 lds w/i&r EKG (In office) [facility] Work Phone: Start: 02-12-2016 End: 02-26-2016 Echocardiography Echocardiogram (complete) [facility] Work Phone: Start: 02-12-2016 End: 02-12-2016 Follow Up Appt 3 months Follow Up Appt 3 months [facility] Work Phone: Start: 02-12-2016 End: 02-12-2016 INR Coag RelTime (PPP) *PT/INR - Standing Order [facility] Work Phone: Start: 02-12-2016 End: 02-26-2016 Nuclear stress test -Lexiscan Nuclear stress test -Lexiscan [facility] Work Phone: Start: 02-05-2016 End: 02-05-2016 *BMP *BMP [facility] Work Phone: Start: 02-05-2016 End: 02-05-2016 *CBC with Differential *CBC with Differential [facility] Work Phone: Start: 02-05-2016 End: 02-05-2016 *Hepatic Function Panel *Hepatic Function Panel [facility] Work Phone: Start: 02-05-2016 End: 02-05-2016 Follow Up Appt Other Follow Up Appt Other [facility] Work Phone: Start: 02-05-2016 End: 02-05-2016 Lipid panel [AGGREGATE] *Lipid Profile CC PCP [facility] Work Phone: Start: 02-05-2016 End: 02-05-2016 Thyroid stimulating hormone (TSH) *TSH [facility] Work Phone: Start: 02-05-2016 End: 02-05-2016 Thyroxine (T4) *T4 (Total) [facility] Work Phone: Start: 11-20-2015 End: 02-05-2016 Follow Up Appt 3 months Follow Up Appt 3 months [facility] Work Phone: Start: 11-20-2015 End: 02-05-2016 Pacer Clinic Pacer Clinic [facility] Work Phone: Start: 08-14-2015 End: 02-05-2016 Follow Up Appt 3 months Follow Up Appt 3 months [facility] Work Phone: Start: 08-14-2015 End: 02-05-2016 Pacer Clinic Pacer Clinic [facility] Work Phone: Start: 08-07-2015 End: 08-07-2015 [facility] Work Phone: Start: 08-07-2015 End: 08-07-2015 Follow Up Appt 6 months Follow Up Appt 6 months [facility] Work Phone: Start: 04-23-2015 End: 07-25-2015 Follow Up Appt 3 months Follow Up Appt 3 months [facility] Work Phone: Start: 04-23-2015 End: 07-25-2015 Pacer Clinic Pacer Clinic [facility] Work Phone: Start: 01-23-2015 End: 07-25-2015 Follow Up Appt 3 months Follow Up Appt 3 months [facility] Work Phone: Start: 01-23-2015 End: 01-23-2015 Follow Up Appt 6 months Follow Up Appt 6 months [facility] Work Phone: Start: 01-23-2015 End: 01-23-2015 MMM MMM [facility] Work Phone: Start: 01-23-2015 End: 07-25-2015 Pacer Clinic Pacer Clinic [facility] Work Phone: Start: 10-24-2014 End: 07-25-2015 Follow Up Appt 3 months Follow Up Appt 3 months [facility] Work Phone: Start: 10-24-2014 End: 07-25-2015 Pacer Clinic Pacer Clinic [facility] Work Phone: Start: 07-24-2014 End: 07-24-2014 [facility] Work Phone: Start: 07-24-2014 End: 07-25-2015 Follow Up Appt 3 months Follow Up Appt 3 months [facility] Work Phone: Start: 07-24-2014 End: 07-24-2014 Follow Up Appt 6 months Follow Up Appt 6 months [facility] Work Phone: Start: 07-24-2014 End: 07-25-2015 Pacer Clinic Pac[facility] Work Phone: Start: 04-27-2014 End: 07-18-2014 Follow Up Appt 3 months Follow Up Appt 3 months [facility] Work Phone: Start: 04-27-2014 End: 07-18-2014 Pacer Clinic [facility] Work Phone: Start: 01-24-2014 End: 01-24-2014 Follow Up Appt 3 months Follow Up Appt 3 months [facility] Work Phone: Start: 01-24-2014 End: 01-24-2014 Follow Up Appt 6 months Follow Up Appt 6 months [facility] Work Phone: Start: 01-24-2014 End: 01-24-2014 MMM MMM [facility] Work Phone: Start: 01-24-2014 End: 01-24-2014 Pacer Clinic [facility] Work Phone: Start: 10-20-2013 End: 07-18-2014 Follow Up Appt 3 months Follow Up Appt 3 months [facility] Work Phone: Start: 10-20-2013 End: 07-18-2014 Pacer Clinic [facility] Work Phone: Start: 09-19-2013 End: 09-19-2013 [facility] Work Phone: Start: 09-19-2013 End: 09-19-2013 Follow Up Appt 4 months Follow Up Appt 4 months [facility] Work Phone: Start: 07-22-2013 End: 09-13-2013 Follow Up Appt 3 months Follow Up Appt 3 months [facility] Work Phone: Start: 07-22-2013 End: 09-13-2013 Pacer Clinic Pac[facility] Work Phone: Start: 07-15-2013 End: 07-15-2013 Follow Up Appt 2 months Follow Up Appt 2 months [facility] Work Phone: Start: 07-15-2013 End: 07-15-2013 MMM MMM [facility] Work Phone: Start: 07-05-2013 End: 07-04-2013 *BMP *BMP [facility] Work Phone: Start: 07-05-2013 End: 07-04-2013 Digoxin *Digoxin (Drug Assay) [facility] Work Phone: Start: 04-15-2013 End: 09-13-2013 [facility] Work Phone: Start: 04-15-2013 End: 09-13-2013 Follow Up Appt 3 months Follow Up Appt 3 months [facility] Work Phone: Start: 04-15-2013 End: 09-13-2013 Follow Up Appt 6 months Follow Up Appt 6 months [facility] Work Phone: Start: 04-15-2013 End: 09-13-2013 Pacer Clinic [facility] Work Phone: Start: 01-12-2013 End: 04-12-2013 Follow Up Appt 3 months Follow Up Appt 3 months [facility] Work Phone: Start: 01-12-2013 End: 04-12-2013 Pacer Clinic Pac[facility] Clinic [facility] Work Phone: Start: 10-12-2012 End: 04-12-2013 Follow Up Appt 3 months Follow Up Appt 3 months [facility] Work Phone: Start: 10-12-2012 End: 10-12-2012 Follow Up Appt 6 months Follow Up Appt 6 months [facility] Work Phone: Start: 10-12-2012 End: 10-12-2012 MMM MMM [facility] Work Phone: Start: 10-12-2012 End: 04-12-2013 Pacer Clinic Pac[facility] Clinic [facility] Work Phone: Start: 2012 Pneumococcal Vaccine: 65+ Years (1 - PCV) Pneumococcal Vaccine: 65+ Years (1 - PCV) [facility] Start: 03-09-2012 End: 03-09-2012 Follow Up Appt 6 months Follow Up Appt 6 months [facility] Work Phone: Start: 08-27-2011 End: 08-27-2011 Follow Up Appt 6 months Follow Up Appt 6 months [facility] Work Phone: Start: 1997 Zoster Vaccines (1 of 2) Zoster Vaccines (1 of 2) [facility] Start: 1969 DTaP/Tdap/Td Vaccines (1 - Tdap) DTaP/Tdap/Td Vaccines (1 - Tdap) [facility] Start: 1965 Diabetes mellitus screening Diabetes Screening [facility] Start: 1965 Hepatitis C screening Hepatitis C Screening [facility] Start: 1947 Creatinine measurement Creatinine Level [facility] Start: 1947 Echocardiography Echocardiogram [facility] Start: 1945 Medicare Annual Wellness Visit Medicare Annual Wellness Visit (AWV) [facility] Start: 1945 Potassium measurement Potassium Level [facility] Start: 1945 Screening for osteoporosis Bone Density Scan [facility] Payers Date Payer Category Payer Unknown 2018 Unknown [id number] 2018 Private Health Insurance 2014 Medicare 2014 Medicare [id number] 1945 Unknown [id number] 1945 Unknown [id number] 1945 Unknown [id number] 1947 Unknown [id number] Medicare [id number] Private Health Insurance [id number] Social History Date Type Detail Facility [facility] Tobacco smoking consumption unknown [facility] Start: 1945 Sex Assigned At Not on file [facility] Work Phone: Gender identity Not on file [facility] Work Phone: Start: 07-19-2023 End: 07-29-2023 Exposure to SARS-CoV-2 (event) Not sure [facility] Evaluation note Note Date & Type Note Facility documented in this encounter [facility] Work Phone: History of Present illness Narrative Note Date & Type Note Facility History of Present illness Narrative Patient identified by name and date of . Patient presented with palpable tension in piriforms that responded well to STW. She demonstrated quick fatigue with TrA and required cues to maintain throughout exercises and increase with upright posture. [facility] Work Phone: History of Present illness Narrative Note Date & Type Note Facility History of Present illness Narrative Patient was identified by name and date. STM completed to reduce soft tissue restrictions at R hip musculature. Reviewed self massage techniques with roller bar and thera cane to cont in HEP. She voiced good understanding. Tactile and verbal cues to correct trunk rotation during plantigrade hip extension and ER during standing hip abduction.. [facility] Work Phone: History of Present illness Narrative Note Date & Type Note Facility History of Present illness Narrative Patient identified by name and date of . Patient was able to progress with core strengthening and ROM with no increased Sx. She demonstrated decreased muscle soreness after treatment this date, held manual treatment due to patient's report of increased soreness after last session. [facility] Work Phone: History of Present illness Narrative Note Date & Type Note Facility History of Present illness Narrative Fair tolerance to ther ex. Weakness noted with core strengthening. Palpable tenderness along R glute and Q/L. Mild guarding noted with transfers. Increased tightness R HS compared to L. Reviewed HEP. [facility] Work Phone: History of Present illness Narrative Note Date & Type Note Facility History of Present illness Narrative Pt confirmed via and Full Name.Pt reassessed this date by supervising PT with improvements noted in lumbar AROM as well as improvements in MMT in BLE's compared to eval. Pt reported 5 point improvement in LEFS score compared to eval as well. Due to short time for session today did not have time to fully update HEP so plan to do that at last visit with LARD RENDERER. [facility] Work Phone: History of Present illness Narrative Note Date & Type Note Facility History of Present illness Narrative Updated HEP This date with standing balance and step ups for progression. Fair (-) contro with SLS with need to use 1 finger support for balance on the R but was stable on the L. Tenderness along the piriformis during STW. Reviewed any remaining questions that patient had this visit. [facility] Work Phone: Summary Purpose Family History No Family History Records FoundNo Family History Records FoundNo Family History Records FoundNo Family History Records FoundNo Family History Records FoundNo Family History Records Found Advance Directives No Advanced Directives Records FoundNo Advanced Directives Records FoundNo Advanced Directives Records FoundNo Advanced Directives Records FoundNo Advanced Directives Records FoundNo Advanced Directives Records Found Reason for Referral Specialty Diagnoses / Procedures Referred By Contac t Referred To Contact Radiology Diagnoses Chronic frontal sinusitis Procedures CT sinus wo IV contrast Elpidio Vicente MD [id number] [address] Referral ID Status Reason Start Date Expiration Date Visits Requested Visits Authorized [id number] Authorized Perform Procedure 07/22/2023 07/21/2024 1 1 Additional Source Comments INFORMATION SOURCE (unrecogn ized section and content) DATE CREATED AUTHOR AUTHOR'S ORGANIZ ATION 06/20/2018 [facility] DATE CREATED AUTHOR AUTHOR'S ORGANIZ ATION 07/26/2018 [facility] DATE CREATED AUTHOR AUTHOR'S ORGANIZ ATION 08/29/2021 [employer] DATE CREATED AUTHOR AUTHOR'S ORGANIZ ATION 12/23/2021 [facility] DATE CREATED AUTHOR AUTHOR'S ORGANIZ ATION 08/02/2023 [facility] <item> Privacy Markings (unrecogniz ed section and content) Section Author: Stefany Andre PROHIBITION ON REDISCLOSURE OF CONFIDENTIAL INFORMATION This notice accompanies a disclosure of information concerning a client made to you with the consent of such client. Reason for Visit (unrecogniz ed section and content) Referral ID Status Reason Start Date Expiration Date Visits Requested Visits Authorized [id number] Authorized Perform Procedure 07/22/2023 07/21/2024 1 1 Care Teams (unrecognized sec tion and content) FOR RECORDS PERTAINING TO PATIENTS WHO ARE OR HAVE BEEN ENROLLED IN A CHEMICAL DEPENDENCY/SUBSTANCEABUSE PROGRAM, SOME INFORMATION MAY BE OMITTED. This clinical summary was aggregated from multiple sources. Caution should be exercised in using it in the provision of clinical care. This summary normalizes information from multiple sources, and as a consequence, information in this document may materially change the coding, format and clinical context of patient data. In addition, data may be omitted in some cases. CLINICAL DECISIONS SHOULD BE BASED ON THE PRIMARY CLINICAL RECORDS. [employer] provides no warranty or guarantee of the accuracy or completeness of information in this document.
== END | disposition home or self-care (01) ==
LOC: OPBI 14:02
PROVIDERS: PCP Family Medicine; Referring Provider Family Medicine; Visit Provider Family Medicine
DX: Z12.31 Encounter for screening mammogram for malignant neoplasm of breast (principal)
CPT/HCPCS: 77063; 77067

== ENCOUNTER → 2023-09-28 | Outpatient (CLI) | payer MEDICARE, OTHER, SELFPAY ==
--- NOTE | 2023-09-28 14:59 | CT_ITS ---
STUDY: CT CHEST WITHOUT CONTRAST REASON FOR EXAM: Female, 78 years old. SOB. Abnormal sleep study. RADIATION DOSAGE (If Supplied By Facility): CTDIvol = ( 11.93 ) mGy, DLP = ( 444.11 ) mGycm TECHNIQUE: Transaxial imaging was performed without the administration of intravenous contrast material. Multiplanar coronal and sagittal images were reformatted. Individualized dose optimization techniques were used for this CT. COMPARISON: Comparison is made with prior study dated April 26, 2012. FINDINGS: CHEST Stable scarring in the anterior medial aspect of the right middle lobe as well as in the posterior aspect of the lingular segment of the left upper lobe. Mild linear scarring at the left lung base. There is no demonstrated pleural abnormality. There are intimal calcifications of the coronary arteries. A left-sided dual-chamber pacemaker is seen. Normal mediastinum. Normal hilar regions. Normal unenhanced pulmonary arteries. Dilatation of the root of the ascending thoracic aorta with a transverse dimension of 46.9 mm. There are degenerative changes of the thoracic spine. There is no demonstrated abnormality of the visualized upper abdomen. CT/Chest without Contrast IMPRESSION: Mild scarring in the anteromedial aspect of the right middle lobe and lingular segment of the left upper lobe. There has been essentially no change. Dilatation of the root of the ascending thoracic aorta with a transverse dimension of 46.9 mm. Electronically Signed: Ton Tipton MD at 9:58 EDT ,
== END | disposition home or self-care (01) ==
PROVIDERS: PCP Family Medicine; Referring Provider Internal Medicine Pulmonary Disease; Visit Provider Internal Medicine Pulmonary Disease
DX: R06.02 Shortness of breath (principal)
CPT/HCPCS: 71250

== ENCOUNTER → 2024-04-19 | Outpatient (CLI) | payer MEDICARE, OTHER, SELFPAY ==
[2024-04-19 16:14] LABS: AST(SGOT) 22 U/L (15-37); Alanine Aminotransfer ALT/SGPT 18 U/L (13-56); Albumin, Serum 3.6 g/dL (3.2-5.0); Alkaline Phosphatase 70 U/L (45-117); Cholesterol 246 mg/dL (200); Globulin 3.8 g/dL (2.2-4.2); High Density Lipoprotein 95 mg/dL; Protein, Total 7.4 g/dL (6.4-8.2); Triglycerides 122 mg/dL; Very Low Density Lipoprotein 24 mg/dL (5-40)
== END | disposition home or self-care (01) ==
PROVIDERS: PCP Family Medicine; Referring Provider Internal Medicine Cardiovascular Disease; Visit Provider Internal Medicine Cardiovascular Disease
DX: E78.5 Hyperlipidemia, unspecified (principal)
CPT/HCPCS: 36415; 80061; 80076

== ENCOUNTER → 2024-04-25 | Outpatient (CLI) | payer MEDICARE, OTHER, SELFPAY ==
[2024-04-25 17:50] LABS: Absolute Lymphocyte Count 2.93 X10^3/uL (0.83-4.51); Absolute Neutrophil Count 5.8 X10^3/uL (2.0-7.7); Basophil# 0.07 X10^3/uL; Basophil% 0.7 % (0-1); Eosinophils% 5.9 % (0-5); Hematocrit 41.1 % (37-47); Hemoglobin 12.7 g/dL (12.0-15.0); Lymphocyte # 2.93 X10^3/ul (0.83-4.51); Lymphocyte % 28.9 % (19-41); Mean Corp Hgb Conc 30.9 g/dL (32-36); Mean Corpuscular Hgb 29.2 pg (27.0-32.0); Mean Corpuscular Volume 94.5 fL (81-99); Mean Platelet Vol. 9.4 fl (6.2-12.0); Monocyte# 0.69 X10^3/uL; Monocyte% 6.8 % (0-10); NRBC Flagged by Analyzer 0 % (0-5); Neutrophil # 5.82 X10^3/uL (2.7-7.7); Neutrophil % 57.4 % (47-70); Platelet Count 306 K/mm3 (150-450); RBC Distribution Width CV 14.1 % (11.6-14.6); RBC Distribution Width SD 49.4 fl (35.1-43.9); Red Blood Count 4.35 M/mm3 (4.2-5.4); White Blood Count 10.1 K/mm3 (4.4-11.0)
[2024-04-25 18:18] LABS: ALB/GLOB Ratio 0.9 RATIO (0.9-2.4); AST(SGOT) 19 U/L (15-37); Alanine Aminotransfer ALT/SGPT 22 U/L (13-56); Albumin, Serum 3.8 g/dL (3.2-5.0); Alkaline Phosphatase 72 U/L (45-117); Anion Gap 4 (5-15); BUN 17 mg/dL (7-18); BUN/Creat Ratio 17.4 RATIO (10-20); Calcium,Total 9.7 mg/dL (8.5-10.1); Chloride 106 mmol/L (98-107); Creatinine, Serum 0.98 mg/dL (0.55-1.02); EST Glomerular Filtration Rate 59 mL/min (>60); Est Glom Filt Rate - Afr Amer 71 mL/min (>60); Globulin 4.1 g/dL (2.2-4.2); Glucose 100 mg/dL (74-106); Potassium 4.4 mmol/L (3.5-5.1); Protein, Total 7.9 g/dL (6.4-8.2); Sodium Level 138 mmol/L (136-145)
== END | disposition home or self-care (01) ==
LOC: BFHLAB 15:19
PROVIDERS: PCP Family Medicine; Referring Provider Family Medicine; Visit Provider Family Medicine
DX: Z51.81 Encounter for therapeutic drug level monitoring (principal); I10 Essential (primary) hypertension; D64.9 Anemia, unspecified; E53.8 Deficiency of other specified B group vitamins; E55.9 Vitamin D deficiency, unspecified
CPT/HCPCS: 36415; 80053; 82306; 82607; 85025

== ENCOUNTER → 2024-08-30 | Outpatient (CLI) | payer MEDICARE, OTHER, SELFPAY ==
--- NOTE | 2024-08-30 12:29 | BI_ITS ---
PROCEDURE: SCRN MAMM (CAD)W/LAKHWINDER BILAT REASON FOR EXAM: F, Age 79 y/o, daughter with breast cancer. Sister with breast cancer. TECHNIQUE: Bilateral screening digital breast tomosynthesis with 2D and 3D images. Computer aided detection. COMPARISON: Prior exam(s) dating back to August 26, 2023.. FINDINGS: There are scattered areas of fibroglandular density. Stable examination. No suspicious masses, areas of developing architectural distortion, or suspicious calcifications. BI/SCRN MAMM (CAD)W/LAKHWINDER BILAT IMPRESSION: BI-RADS 1: NEGATIVE. RECOMMEND ANNUAL MAMMOGRAPHIC SCREENING. Follow-up code: Routine Follow-up The patient will be notified of the results by letter. Reading Location: [place] [id number]
--- NOTE | 2024-08-30 12:34 | BD_ITS ---
EXAM: CLINICAL INDICATION: Determine bone density. CLINICAL HISTORY: Postmenopausal COMPARISON: 01/31/2020 TECHNIQUE: Bone densitometry of the lumbar spine and hips was performed using the HOLOGIC DEXA scanner. FINDINGS: Bone Density Measurements: SPINE AP Spine (L1-L4): 0.873 g/cm2 T-Score: -1.3 Z-Score: 1.1 WHO Classification: OSTEOPENIA There is -6.3 % change since the prior examination of 01/31/2020 LEFT FEMUR Femoral TOTAL (LEFT): 0.792 g/cm2 T-Score: -1.2 Z-Score: 0.7 WHO Classification: OSTEOPENIA Femoral NECK (LEFT): 0.598 g/cm2 T-Score: -2.3 Z-Score: -0.1 WHO Classification: OSTEOPENIA There is 5.0 % change since the prior examination of 01/31/2020 RIGHT FEMUR Femoral TOTAL (RIGHT): 0.825 g/cm2 T-Score: -1.0 Z-Score: 0.9 WHO Classification: NORMAL Femoral NECK (RIGHT): 0.672 g/cm2 T-Score: -1.6 Z-Score: 0.6 WHO Classification: Normal There is 0.2 % change since the prior examination of 01/31/2020 BD/Dexa Bone Density Study IMPRESSION: Findings consistent with osteopenia World Health Organization criteria for BMD interpretation classify patients as: Normal (T-score at or above -1.0), Osteopenic (T-score between -1.0 and -2.5),or Osteoporotic (T-score at or below -2.5). The presence of vertebral abnormalities such as scoliosis or osteophytes, or ao rtic/ligamentous calcifications can alter readings of the lumbar spine. In such cases, readings of the hips are more reliable. Reading Location: [facility]
== END | disposition home or self-care (01) ==
LOC: OPBD 12:26
PROVIDERS: PCP Family Medicine; Referring Provider Family Medicine; Visit Provider Family Medicine
DX: Z12.31 Encounter for screening mammogram for malignant neoplasm of breast (principal); Z78.0 Asymptomatic menopausal state; M81.0 Age-related osteoporosis without current pathological fracture
CPT/HCPCS: 77063; 77067; 77080

== ENCOUNTER 2024-09-16 10:21 | Emergency (ER) | payer MEDICARE, OTHER, SELFPAY ==
[2024-09-16 10:22] VITALS: BP 179/107; PULSE 72; RESP 16; TEMP 36.7; O2SAT 99; BMI 29.3
--- NOTE | 2024-09-16 12:20 | CT_ITS ---
EXAM: BRAIN/HEAD WITHOUT CONTRAST CLINICAL HISTORY: Headaches. Dizziness. COMPARISON: None TECHNIQUE: Multiple axial tomographic images were obtained without intravenous contrast administration. Coronal and sagittal reconstruction was obtained as well. FINDINGS: Mild degree of cerebral atrophy. Focal hypodensities in the insular cortex of the right and left temporal lobes suggestive of old ischemic change. Focal area of decreased attenuation in the posterior right temporal and parietal lobes. This may represent focal area of prior ischemic change. No evidence of mass effect. Punctate calcifications in both basal ganglia. This is a normal finding in patients of this age. Mild degree of bilateral periventricular hypodensity suggestive of chronic small-vessel disease. No evidence of intracranial hemorrhage. CT/Brain/Head without Contrast IMPRESSION: Cerebral atrophy. Focal area of decreased attenuation/encephalomalacia in the insular cortex of b oth right and left temporal lobes as well as in the posterior right temporal/parietal lobes suggestive of chronic changes. Reading Location: [id number]
[2024-09-16 12:34] LABS: Absolute Lymphocyte Count 1.97 X10^3/uL (0.83-4.51); Absolute Neutrophil Count 5.7 X10^3/uL (2.0-7.7); Basophil# 0.05 X10^3/uL; Basophil% 0.6 % (0-1); Eosinophil# 0.31 X10^3/uL; Eosinophils% 3.6 % (0-5); Hematocrit 40.4 % (37-47); Hemoglobin 13.2 g/dL (12.0-15.0); Lymphocyte # 1.97 X10^3/ul (0.83-4.51); Lymphocyte % 22.9 % (19-41); Mean Corp Hgb Conc 32.7 g/dL (32-36); Mean Corpuscular Hgb 30.1 pg (27.0-32.0); Mean Corpuscular Volume 92.2 fL (81-99); Mean Platelet Vol. 9.6 fl (6.2-12.0); Monocyte# 0.58 X10^3/uL; Monocyte% 6.7 % (0-10); NRBC Flagged by Analyzer 0 % (0-5); Neutrophil # 5.67 X10^3/uL (2.7-7.7); Neutrophil % 65.9 % (47-70); Platelet Count 256 K/mm3 (150-450); RBC Distribution Width SD 47.6 fl (35.1-43.9); Red Blood Count 4.38 M/mm3 (4.2-5.4); White Blood Count 8.6 K/mm3 (4.4-11.0)
[2024-09-16 12:41] VITALS: BP 171/90; PULSE 63; RESP 16; O2SAT 97
--- NOTE | 2024-09-16 12:50 | EDS_ITS ---
HPI History of Present Illness Chief Complaint: Hypertension Informant: patient Narrative Narrative: Patient is a 79-year-old female with history of proximal atrial fibrillation (on carvedilol and 81 mg aspirin), left bundle branch block, nonischemic cardiomyopathy, anxiety, hypertension and hyperlipidemia as well as allergies and chronic sinusitis presenting with headache, elevated blood pressure and an episode of epistaxis yesterday. Patient notes that she had blurry vision yesterday that started in her left eye but she is not currently sure if her vision was blurry in both her eyes. She notes that she does have a history of migraines that tend to start with an aura in her left eye but this felt different. She did take an Advil migraine as well as Ativan yesterday for her symptoms. She also states that she hit her finger in her nose and felt that she picked something up and then started having a nosebleed. He states she bled for about an hour and a half. She took her blood pressure last night around 11:30 PM and it was elevated at 177/110. She had taken her evening Coreg and about an hour later her blood pressure had normalized and was 131/82 this morning. When she called her lead technologist in cytogenetics office about her elevated blood pressure and blurry vision they recommend she come to the ER in case she had a stroke. She previously had been on warfarin but had stopped that because of what sounds like hemorrhage and bleeding. She does have an ICD. She denies any history of stroke. Denies associate numbness or tingling. Currently denies any vision changes. Does feel that her answers are not as sharp as they normally are. No report of any slurred speech. No other complaints or concerns reported at this time. Denies any chest pain or shortness of breath. States this does not feel like her atrial fibrillation. [facility] Medical History Anxiety disorder, unspecified Memory changes Obesity Dysuria Nonischemic cardiomyopathy Essential (primary) hypertension Paroxysmal atrial fibrillation Left bundle branch block HLD (hyperlipidemia) Home Medications ?Medication ?Instructions ?Recorded ?Last Taken ?Type lorazepam 0.5 mg tablet 0.5 mg PO DAILY PRN PRN Anxi ety 06/30/13 07/02/13 History 0300 cholecalciferol (vitamin D3) 50 2,000 unit PO DAILY Unknown History mcg (2,000 unit) capsule lutein 20 mg capsule 20 mg PO DAILY 02/01/19 Unkn own History aspirin 81 mg tablet,delayed 81 mg PO DAILY 04/04/21 U nknown History release (Adult Low Dose Aspirin) carvedilol 25 mg tablet 25 mg PO QPM HEART/BP #90 ta bs 11/05/23 Unknown Rx diltiazem HCl 120 mg 120 mg PO QDAY BP/HEART #90 caps 02/22/24 Unknown Rx capsule,extended release 24 hr carvedilol 12.5 mg tablet 12.5 mg PO BREAKFAST BP/HEAR T #90 02/23/24 Unknown Rx tabs sertraline 50 mg tablet 25 mg PO QDAY 04/19/24 Unkno wn History ramipril 10 mg capsule 10 mg PO DAILY BP #90 caps 1 Unknown Rx Allergy/AdvReac Type Severity Reaction Status Date / Time pollen extracts Allergy Mild COLD SXS Verified 09/16/24 10:24 Family History Sister CAD (coronary artery disease) coronary stent Surgical History History of left heart catheterization (02/05/05) Presence of biventricular implantable cardioverter-defibrillator (ICD) (04/02/17) Hx of cholecystectomy Social History Smoking Status: Never smoker ROS ROS ED Constitutional Constitutional ED: Denies chills or fever(s) Eyes Eyes: Reports blurry vision left ENT ENT ED: Reports other Details: Epistaxis ; Denies rhinorrhea or sore throat Cardiovascular Cardiovascular: Denies chest pain Respiratory/Chest Respiratory/Chest: Denies cough or dyspnea Gastrointestinal Gastrointestinal: Denies abdominal pain or vomiting Genitourinary Genitourinary ED: Denies dysuria or hematuria Musculoskeletal Musculoskeletal: Denies arthralgias or myalgias Integumentary Denies rash Neurologic Neurologic: Reports headache(s); Denies paresthesias or weakness Psychiatric Psychiatric: Reports anxiety Hematologic/Lymphatic Hematologic/Lymphatic: Denies easy bleeding or easy bruising EXAM Physical Exam Const Vital Signs: 09/16/24 10:22 09/16/24 11:02 09/16/24 12:41 Temperature 98.1 F Temperature Source Temporal Pulse Rate 72 63 Respiratory Rate 16 16 Respiratory Effort Normal Non-Labored Respiratory Pattern Normal Blood Pressure 179/107 H 171/90 H Blood Pressure Mean 131 117 Pulse Ox 99 97 Oxygen Delivery Method Room Air Room Air 09/16/24 14:00 09/16/24 15:41 Temperature 97.6 F L Temperature Source Pulse Rate 63 74 Respiratory Rate 19 H 14 Respiratory Effort Respiratory Pattern Blood Pressure 161/102 H 156/94 H Blood Pressure Mean 121 114 Pulse Ox 93 99 Oxygen Delivery Method Room Air Positive well nourished and well developed General Appearance ED: well developed and NAD HEENT Reports TM's clear and moist mucous membranes HEENT Narrative: Normal nasal exam. No signs of active bleeding or epistaxis. Negative for trauma Tympanic Membrane ED: Yes TM's clear Neck supple and no JVD Chest Wall inspection of chest normal and palpation of chest normal Resp normal respiratory effort and clear to auscultation bilaterally Cardio regular rate, regular rhythm and no murmurs GI normal to inspection, nondistended, normoactive bowel sounds and non-tender Extremity normal to inspection Neuro oriented x3, CN's II-XII intact bilaterally and no sensory deficits noted Neuro Narrative: NIH equals 0, normal coordination with normal [id number], no truncal ataxia Sensorium / Orientation: alert Motor Exam: strength 5/5 throughout; Negative for general weakness Psych mental status grossly normal Skin no rashes or lesions noted and no wounds MDM MDM MDM Narrative Medical decision making narrative: Patient is evaluated for headache and vision changes yesterday. She was it came from her left eye. Does have a history of migraines with what sounds like aura was. In addition when she checked her blood pressure last night it was elevated. Her cardiology office recommend she come to the emergency room for further evaluation. Patient is hypertensive but asymptomatic at this time. She reports chronic sinusitis with chronic facial pain and no acute change. Blood pressure is downtrending in the emergency room. Patient asymptomatic. Workup largely negative. CT of the brain does not show any acute process with chronic changes. CTA of the head and neck shows mild calcified plaque at the origin of the left internal carotid artery but no significant stenosis. No aneurysm noted. Patient cannot have MRI because of her ICD. At this time I have a lower suspicion that her symptoms were neurologic. Suspect is more of a complex migraine. She is comfortable being discharged home with outpatient follow-up. Is given close return precautions including signs and symptoms of stroke. I do not think this is a hypertensive emergency. Blood pressure continues to be downtrending. Patient did have a recent decrease in 1 due to side effects (she is not sure which 1). Could be that she needs further blood pressure control. Will contact cardiology to see if he would like to making medication changes versus continue to monitor. In addition patient does note that she recently had bad news about the health of a family member and has had increased stress. She is not sure some of this is anxiety related. Case discussed with cardiology, Dr. Mckoy. He recommends having her follow-up outpatient. States she could increase her ramipril. Patient will be counseled to keep a blood pressure log. She continues to have high blood pressure she can double her ramipril every morning. Patient given return precautions. Discharged home in stable condition. Lab Data Attestation: I reviewed the patient's lab results. Labs: Laboratory Results - last 24 hr 09/16/24 09/16/24 11:13 13:36 WBC 8.6 RBC 4.38 Hgb 13.2 Hct 40.4 MCV 92.2 MCH 30.1 MCHC 32.7 RDW Std Deviation 47.6 H RDW Coeff of Gloria 14.0 Plt Count 256 MPV 9.6 Immature Gran % (Auto) 0.300 Neut % (Auto) 65.9 Lymph % (Auto) 22.9 Hart % (Auto) 6.7 Eos % (Auto) 3.6 Baso % (Auto) 0.6 Absolute Neuts (auto) 5.7 Absolute Lymphs (auto) 1.97 Nucleated RBC % 0 Sodium 139 Potassium 4.5 Chloride 104 Carbon Dioxide 22.8 Anion Gap 12 BUN 19 Creatinine 0.85 Estim Creat Clear Calc 60.03 Est GFR (MDRD) Non-Af 71 BUN/Creatinine Ratio 21.9 H Glucose 98 Calcium 9.4 Urine Color Straw Urine Clarity Clear Urine pH 6.0 Ur Specific Remington 1.010 Urine Protein Negative Urine Glucose (UA) Normal Urine Ketones Negative Urine Occult Blood Negative Urine Nitrite Negative Urine Bilirubin Negative Urine Urobilinogen Normal Ur Leukocyte Esterase 25 H Urine RBC 0 SEEN Urine WBC 0-5 SEEN Ur Squamous Epith Cells 0 SEEN Ur Transition Epith Cell 0-5 SEEN Urine Bacteria 0 SEEN Urine Mucus 0 SEEN Radiography Chest X-Ray - ED: 2 View, Read by ED Physician, Read by Radiologist and No Acute Disease Diagnostic Testing: Clinical Impression(s) from Imaging Studies Brain CT 09/16/24 12:20 IMPRESSION: Cerebral atrophy. Focal area of decreased attenuation/encephalomalacia in the insular cortex of both right and left temporal lobes as well as in the posterior right temporal/parietal lobes suggestive of chronic changes. Reading Location: [id number] Chest X-Ray 09/16/24 13:15 IMPRESSION: Left thoracic transvenous pacemaker/AICD device with leads appears unchanged. The cardiomediastinal silhouette is stable, with a tortuous aorta again present. No evidence of cardiomegaly. No evidence of pulmonary edema. Lungs appear clear of acute disease. No pleural effusion or pneumothorax is evident. No interval osseous change is noted. Reading Location: [id number] Head/Neck CTA 09/16/24 14:08 IMPRESSION: RIGHT CAROTID: Unremarkable LEFT CAROTID: Minimal calcific plaque at the origin of the left internal carotid artery. VERTEBRALS: Unremarkable INTRACRANIAL: Unremarkable One or more dose reduction techniques were used (e.g., Automated exposure control, adjustment of the mA and/or kV according to patient size, use of iterative reconstruction technique). Reading Location: [id number] Rhythm Strip Rhythm Strip: paced Rate: 64 Ectopy: None EKG Initial EKG: Attestation: I personally reviewed and interpreted this EKG as follows: Interpretation: Paced Comments: Atrial sensed ventricular paced rhythm at a rate of 64 bpm Biventricular pacemaker present Normal ST segments Prior EKG tracings: available for review Prior: Unchanged Management Discussion w/another healthcare provider: Inspecting Engineer (Cardiology ) Discharge Plan Triage Chief Complaint: Hypertension ED Provider: Jovita Norris Dx/Rx/DC Orders Prescriptions: No Action cholecalciferol (vitamin D3) 2,000 unit capsule 2,000 unit PO DAILY lutein 20 mg capsule 20 mg PO DAILY aspirin [Adult Low Dose Aspirin] 81 mg tablet,delayed release (DR/EC) 81 mg PO DAILY sertraline 50 mg tablet 25 mg PO QDAY lorazepam 0.5 MG tablet 0.5 mg PO DAILY PRN PRN (Reason: Anxiety) carvedilol 25 mg tablet 25 mg PO QPM Qty: 90 3RF Rx Instructions: TAKES 12.5 MG Q AM, 25 MG QHS diltiazem HCl 120 mg capsule,extended release 24hr 120 mg PO QDAY Qty: 90 3RF carvedilol 12.5 mg tablet 12.5 mg PO BREAKFAST Qty: 90 3RF Rx Instructions: TAKES 12.5 MG Q AM, 25 MG QHS ramipril 10 mg capsule 10 mg PO DAILY Qty: 90 3RF Primary Care Provider: Mariana Lugo Referrals: Raciel Louie MD [Med Staff - Active Staff] - Mariana Lugo DO [Primary Care Provider] - Activity Restrictions/Additional Instructions: Your workup today was largely normal and reassuring. Blood pressure is mildly elevated but did come down on the emergency room. Exact cause your symptoms is not clear however low suspicion for stroke. Definitive diagnosis would include an MRI which we cannot perform today/this weekend. I did speak with Dr. Mckoy, cardiology on-call. He recommends keeping track of her blood pressure. He states if he continued have elevated blood pressure she could increase your ramipril 10 mg to 20 mg in the morning. Please call the office for outpatient follow-up. Print Language: French Disposition Disposition: Home, Self Care
[2024-09-16 13:07] LABS: Anion Gap 12 (5-15); BUN 19 mg/dL (4-19); BUN/Creat Ratio 21.9 RATIO (10-20); Calcium,Total 9.4 mg/dL (7.6-11.0); Carbon Dioxide 22.8 mmol/L (21.0-32.0); Chloride 104 mmol/L (98-108); Creatinine, Serum 0.85 mg/dL (0.70-1.20); EST Glomerular Filtration Rate 71 (>60); Estimated Creatinine Clearance 60.03 ml/min (50-250); Glucose 98 mg/dL (70-99); Potassium 4.5 mmol/L (3.3-5.1); Sodium Level 139 mmol/L (133-145)
--- NOTE | 2024-09-16 13:15 | RAD_ITS ---
PROCEDURE: CHEST PA AND LATERAL REASON FOR EXAM: Hypertension. TECHNIQUE: Frontal and lateral views of the chest. COMPARISON: Chest x-ray 07/23/2023. RAD/Chest PA and Lateral IMPRESSION: Left thoracic transvenous pacemaker/AICD device with leads appears unchanged. The cardiomediastinal silhouette is stable, with a tortuous aorta again present . No evidence of cardiomegaly. No evidence of pulmonary edema. Lungs appear clear of acute disease. No pleural effusion or pneumothorax is evident. No interval osseous change is noted. Reading Location: [id number]
[2024-09-16 13:42] LABS: Bacteria 0 SEEN /hpf (None Seen); Mucous, Urine 0 SEEN /hpf (<or=2+); Squamous Epithelial Cells - UA 0 SEEN /hpf (5-10)
[2024-09-16 13:52] LABS: Color, Urine Straw (Yellow); Glucose, Dipstick Normal (Normal); Ketone-Dipstick Negative (Negative); Leukocyte Esterase-Dipstick 25 /ul (Negative); Nitrite-Dipstick Negative (Negative); Occult Blood-Urine Negative /ul (Negative); Protein-Dipstick Negative (Negative); Urine Bilirubin Dipstick Negative (Negative); Urine Clarity Clear (Clear); Urine Urobilinogen Normal (Normal)
[2024-09-16 14:00] VITALS: BP 161/102; PULSE 63; RESP 19; O2SAT 93
--- NOTE | 2024-09-16 14:08 | CT_ITS ---
PROCEDURE: CTA HEAD AND NECK W/ CONTRAST REASON FOR EXAM: Hypertension. Headache. Nosebleed. TECHNIQUE: CTA imaging of the head and neck from the aortic arch to the skull vertex with intravenous contrast. 3D reconstructions. CONTRAST: COMPARISON: None. # of known CTs in the past 12 months: 0 # of known Cardiac Nuclear Medicine Studies in the past 12 months: 0 FINDINGS: Aortic Arch: Normal size and branching pattern. No significant atherosclerotic plaque. Brachiocephalic and Subclavians: Unremarkable RIGHT Carotid: Right CCA: Unremarkable. Right ICA: Unremarkable. Right ECA: Unremarkable. LEFT Carotid: Left CCA: Unremarkable. Left ICA: Minimal plaque formation at the origin of the left internal carotid artery. Maximum stenosis (NASCET): <20% % Left ECA: Unremarkable. Vertebrals: Codominant. Arise from the subclavians. Both vertebrals form the basilar. RIGHT Vertebral: Unremarkable. LEFT Vertebral: Unremarkable. No intracranial aneurysms or large vascular malformations are identified. Anterior cerebral arteries: Unremarkable. Middle cerebral arteries: Unremarkable. Basilar artery: Unremarkable. Posterior cerebral arteries: Unremarkable. Other major branches of the posterior circulation: Unremarkable. Major venous structures: Unremarkable. Other findings: No lymphadenopathy. Lung apices are clear. Bones are unremarkable. CT/CTA Head AND Neck W/ Contrast IMPRESSION: RIGHT CAROTID: Unremarkable LEFT CAROTID: Minimal calcific plaque at the origin of the left internal caroti d artery. VERTEBRALS: Unremarkable INTRACRANIAL: Unremarkable One or more dose reduction techniques were used (e.g., Automated exposure contr ol, adjustment of the mA and/or kV according to patient size, use of iterative reconstruction technique). Reading Location: [id number]
[2024-09-16 14:11] LABS: Red Blood Cells-Urine 0 SEEN /hpf (0-5); Transitional Epithelial - Ur 0-5 SEEN /hpf (0-5); White Blood Cells 0-5 SEEN /hpf (0-5)
[2024-09-16 15:41] VITALS: BP 156/94; PULSE 74; RESP 14; TEMP 36.4; O2SAT 99
--- NOTE | 2024-09-16 15:59 | ED.RN ---
Pt D/C, no new vitals. See Dispo
== END 2024-09-16 16:10 | disposition home or self-care (01) ==
PROVIDERS: Emergency Provider Emergency Medicine; PCP Family Medicine; Visit Provider Emergency Medicine
DX: I10 Essential (primary) hypertension (principal); I48.0 Paroxysmal atrial fibrillation; F41.9 Anxiety disorder, unspecified; Z79.01 Long term (current) use of anticoagulants; E78.5 Hyperlipidemia, unspecified; Z79.82 Long term (current) use of aspirin; Z95.810 Presence of automatic (implantable) cardiac defibrillator; R51.9 Headache, unspecified
CPT/HCPCS: 70450; 70496; 70498; 71046; 80048; 81001; 85025; 93005; 99284; Q9967; A4216

== ENCOUNTER → 2025-01-10 | Outpatient (CLI) | payer MEDICARE, OTHER, SELFPAY ==
[2025-01-10 15:15] LABS: Pro- Brain NATRIURETIC PEPTIDE 218 pg/mL (<=1800)
== END | disposition home or self-care (01) ==
LOC: LAB 13:47
PROVIDERS: PCP Family Medicine; Referring Provider Internal Medicine Cardiovascular Disease; Visit Provider Internal Medicine Cardiovascular Disease
DX: R06.02 Shortness of breath (principal)
CPT/HCPCS: 36415; 83880

== ENCOUNTER → 2025-01-25 | Outpatient (CLI) | payer MEDICARE, OTHER, SELFPAY ==
--- NOTE | 2025-01-25 15:29 | ECHOD_ITS ---
Reason For Study Reason For Study: DYSPNEA/SOB Procedure This was a 2D Doppler, Color Flow transthoracic echocardiogram. Exam performed in department. Left Ventricle Normal LV size. Left ventricular systolic function is normal. Stage 1 diastolic dysfunction. The left ventricular ejection fraction is 65 %. No regional wall motion abnormalities noted. Right Ventricle Normal RV size. ICD or pacer leads identified within the right ventricle. Normal systolic function. Atria Normal left atrium. Normal right atrium. Mitral Valve Normal mitral valve. Mild-Moderate (1-2+) eccentric mitral valve insufficiency. Tricuspid Valve Normal tricuspid valve. Mild (1+) tricuspid valve insufficiency. Pulmonary artery systolic pressure is 35 mmHg. Aortic Valve Trisinus/trileaflet aortic valve. Mild (1+) eccentric aortic valve insufficiency. Pulmonic Valve Normal pulmonic valve. Great Vessels Normal aortic root. The pulmonary artery is normal size. Inferior vena cava collapse with respiration. Pericardium/Pleural No pericardial effusion. MMode/2D Measurements & Calculations LVIDd: 4.6 cm IVSd: 1.1 cm Ao root diam: 3.8 cm LVIDs: 2.8 cm LVPWd: 1.1 cm RVDd: 3.9 cm FS: 38.2 % LAV(MOD-bp): 71.8 ml LVAd ap4: 22.5 cm2 LVAd ap2: 26.8 cm2 LAV(MOD-bp) Indexed: 37.4 ml/m2 LVLd ap4: 6.5 cm LVLd ap2: 7.6 cm LAV(MOD-sp2): 71.0 ml EDV(MOD-sp4): 65.2 ml EDV(MOD-sp2): 85.2 ml LAV(MOD-sp4): 69.6 ml EDV(sp4-el): 65.8 ml EDV(sp2-el): 80.6 ml LVAs ap4: 11.8 cm2 LVAs ap2: 13.9 cm2 LVLs ap4: 5.4 cm LVLs ap2: 6.1 cm ESV(MOD-sp4): 23.6 ml ESV(MOD-sp2): 28.1 ml ESV(sp4-el): 21.9 ml ESV(sp2-el): 26.8 ml EF(MOD-sp4): 63.8 % EF(MOD-sp2): 67.0 % EF(sp4-el): 66.7 % SV(MOD-sp4): 41.6 ml SV(MOD-sp2): 57.0 ml SV(sp4-el): 43.9 ml SI(MOD-sp4): 21.6 ml/m2 SI(MOD-sp2): 29.7 ml/m2 LA A4 area: 22.0 cm2 LA dimension(2D): 3.7 cm RA A4 area: 20.8 cm2 TAPSE: 2.1 cm Time Measurements MV dec time: 0.22 sec Doppler Measurements & Calculations MV E max santiago: 65.6 cm/sec Lat Peak E' Santiago: 12.9 cm/sec Med Peak E' Santiago: 9.3 cm/sec MV A max santiago: 84.6 cm/sec E/E' lat: 5.1 E/E' med: 7.1 MV E/A: 0.78 MV V2 max: 102.2 cm/sec MV P1/2t max santiago: 67.9 cm/sec Ao V2 max: 181.5 cm/sec MV max P.2 mmHg MV P1/2t: 41.9 msec Ao max P.2 mmHg MV V2 mean: 56.8 cm/sec Ao V2 mean: 120.9 cm/sec MV mean P.5 mmHg MV dec slope: 475.2 cm/sec2 Ao mean P.6 mmHg MV V2 VTI: 25.3 cm MVA(P1/2t): 5.3 cm2 Ao V2 VTI: 33.7 cm AV (velocity ratio): 0.69 AI max santiago: 388.1 cm/sec LV V1 max: 119.3 cm/sec PA V2 max: 100.0 cm/sec AI max P.3 mmHg LV V1 max P.7 mmHg PA V2 mean: 67.1 cm/sec LV V1 mean P.8 mmHg AI dec slope: 140.7 cm/sec2 LV V1 mean: 77.9 cm/sec AI P1/2t: 808.1 msec LV V1 VTI: 23.1 cm TR max santiago: 282.7 cm/sec PI dec slope: 185.7 cm/sec2 TR max P.0 mmHg ECHO/Echo Complete Interpretation Summary Normal LV size. Left ventricular systolic function is normal. Mild-Moderate (1-2+) eccentric mitral valve insufficiency. Stage 1 diastolic dysfunction. The left ventricular ejection fraction is 65 %. Ordering Physician: Raciel Louie Referring Physician: Mariana Lugo Performed By: Kusum Dwyer, MANJU, RVT
== END | disposition home or self-care (01) ==
LOC: CVS 15:26
PROVIDERS: PCP Family Medicine; Referring Provider Internal Medicine Cardiovascular Disease; Visit Provider Internal Medicine Cardiovascular Disease
DX: R06.02 Shortness of breath (principal)
CPT/HCPCS: 93306

== ENCOUNTER → 2025-05-01 | Outpatient (CLI) | payer MEDICARE, OTHER, SELFPAY ==
[2025-05-01 13:09] LABS: Hematocrit 40.8 % (37-47); Hemoglobin 13.1 g/dL (12.0-15.0); Immature Granulocytes Count 0.020 X10^3/uL (0.0-0.0); Mean Corp Hgb Conc 32.1 g/dL (32-36); Mean Corpuscular Volume 92.3 fL (81-99); Mean Platelet Vol. 9.2 fl (6.2-12.0); NRBC Flagged by Analyzer 0 % (0-5); Platelet Count 234 K/mm3 (150-450); RBC Distribution Width CV 13.3 % (11.6-14.6); RBC Distribution Width SD 45.4 fl (35.1-43.9); Red Blood Count 4.42 M/mm3 (4.2-5.4); White Blood Count 8.7 K/mm3 (4.4-11.0)
[2025-05-01 14:10] LABS: AST(SGOT) 24 U/L (<=31); Alanine Aminotransfer ALT/SGPT 15 U/L (<=34); Albumin, Serum 4.3 g/dL (3.4-4.8); Alkaline Phosphatase 64 U/L (35-104); Anion Gap 10 (5-15); BUN 15 mg/dL (4-19); BUN/Creat Ratio 16.7 RATIO (10-20); Calcium,Total 9.4 mg/dL (7.6-11.0); Carbon Dioxide 26.4 mmol/L (21.0-32.0); Chloride 105 mmol/L (98-108); Cholesterol 249 mg/dL (<=200); Globulin 2.8 g/dL (2.2-4.2); Glucose 96 mg/dL (70-99); Low Density Lipoprotein Calc. 132 mg/dL; Potassium 4.5 mmol/L (3.3-5.1); Triglycerides 157 mg/dL; Very Low Density Lipoprotein 31 mg/dL (5-40); Vitamin B12 1577 pg/mL (180-914); Vitamin D,25 Hydroxy 80.6 ng/mL (30-100); cholesterol:hdl ratio screen 2.76
== END | disposition home or self-care (01) ==
PROVIDERS: PCP Family Medicine; Referring Provider Nurse Practitioner Family; Visit Provider Nurse Practitioner Family
DX: D64.9 Anemia, unspecified (principal); I10 Essential (primary) hypertension; E55.9 Vitamin D deficiency, unspecified; E53.8 Deficiency of other specified B group vitamins; E78.5 Hyperlipidemia, unspecified; Z51.81 Encounter for therapeutic drug level monitoring
CPT/HCPCS: 36415; 80053; 80061; 80076; 82306; 82607; 85025